=== PATIENT | male | born 1930 | race Caucasian/White ===

== ENCOUNTER 2017-05-10 09:09 | Observation (INO) | payer MEDICARE, OTHER ==
[~2017-05-10] VITALS: Ht 180.3 cm; Wt 69.9 kg
[~2017-05-10 09:09] MED LIST: ALLOPURINOL100 MG PO; AMITRIPTYLINE H25 MG PO; ANDROGEL5 GM; APRESOLINE25 MG; ASA81 MG PO; BACTRIM DS TAB1 EACH PO; CLINDAMYCIN HC300 MG PO; COUMADIN3 MG PO; CRESTOR20 MG PO; DIGOXIN125 MCG PO; FERROUS FUMARA324 MG PO; FINASTERIDE5 MG PO; FUROSEMIDE40 MG PO; JANUVIA100 MG PO; KCL20TCR PO; LEVAQUIN250 MG PO; LEVOTHYROXINE25 MCG; LEVOTHYROXINE25 MCG PO; LEVOTHYROXINE50 MCG PO; MECLIZINE HCL12.5 MG PO; MELATONIN PO; METOLAZONE5 MG PO; METOPROLOL TART25 MG PO; METOPROLOL TART50 MG PO; NIFEDIPINE ER30 M1 PO; NIFEDIPINE ER30 MG; PANTOPRAZOLE SO40 MG PO; POTASSIUM CHLO10 ME1 PO; POTASSIUM CITRATE PO; PRADAXA75 MG PO; PROSCAR5 MG; RIFAMPIN300 MG PO; SULINDAC150 MG PO; TERAZOSIN HCL5 MG PO; TYLENOL # 31 EA PO; ULTRAM50 MG PO; WARFARIN SODIUM5 MG PO; Z.0.ALLOPURINOL100 M PO; Z.0.CARTIA XT180 MG; Z.0.CATAPRES0.1 MG; Z.0.FUROSEMIDE40 MG PO; Z.0.HYTRIN5 MG PO; Z.0.LUNESTA3 MG; Z.0.OMEPRAZOLE20 M1 PO; Z.0.PROSCAR5 MG PO; Z.0.SYNTHROID25 MCG PO; Z.0.TYLENOL # 31 EA PO; Z.2.LOSARTAN-HCTZ1 E; ZEMPLAR1 MCG PO; [UNRECOGNIZED DRUG - OTHER] PO
--- OUTSIDE RECORDS SUMMARY | 2017-05-10 09:13 | XMS REPORT | Summary of Care ---
Author Author Alanna Escalera LVN Unknown Address [facility] Phone Unavailable Care Team Providers Care Spool Cleaner Hand Name Role Phone JACY Curry, IVAN Unavailable Unavailable SITA Deshpande, GORDON Unavailable Unavailable ROSE MARIE Curry, LEXIE Bill Unavailable MIKA Curry, YURY Unavailable Unavailable ROSE MARIE WILKINS [place], LEXIE ABURTO Unavailable Unavailable Unavailable Unavailable Functional Status Name Dates Details Functional status health issues are not documented Status: Name Dates Details Cognitive status health issues are not documented Status: Problems Name Dates Details Influenza vaccine needed (V04.81, Z23) Status: Active History of renal calculi (V13.01, Z87.442) Status: Resolved 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, 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: Active Eczema (692.9, L30.9) Status: Active Nephrosclerosis (403.90, I12.9) Status: Active Recurrent ventral hernia (553.21, K43.2) Status: Active Allergic rhinitis due to pollen (477.0, J30.1) Status: Active Osteoporosis (733.00, M81.0) Status: Active Low back pain (724.2, M54.5) Status: Active Sciatica (724.3, M54.30) Status: Active Kyphosis (737.10, M40.209) Status: Active Prostatic enlargement (600.00, N40.0) Status: Active Muscle weakness (generalized) (728.87, M62.81) Status: Active Allergic bronchitis, mild intermittent, uncomplicated Status: Active 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, M15.9) Status: Active Vitamin B12 deficiency (266.2, E53.8) Status: Active Mixed hyperlipidemia (272.2, E78.2) Status: Active Chronic idiopathic gout involving toe without tophus, unspecified laterality ( 274.02, M1A.0790) Status: Active Controlled type 2 diabetes mellitus with diabetic nephropathy, without long- term current use of insulin (250.40, E11.21) Status: Active Hypokalemia (276.8, E87.6) Status: Active Cardiomyopathy (425.4, I42.9) Status: Active GERD without esophagitis (530.81, K21.9) Status: Active Impaired mobility and ADLs (799.89, Z74.09) Status: Active Pre-ulcerative corn or callous (700, L84) Status: Active Other insomnia (780.52, G47.09) Status: Active Unstable gait (781.2, R26.81) Status: Active Weakness of both lower extremities (729.89, R29.898) Status: Active Cervicalgia (723.1, M54.2) Status: Active Enlarged prostate without lower urinary tract symptoms (luts) (600.00, N40.0) Status: Active Limb pain (729.5, M79.609) Status: Active Atrial fib/flutter, transient Status: Active Essential (primary) hypertension (401.9, I10) Status: Active Anemia due to acute blood loss (285.1, D62) Status: Active Diabetes mellitus without complication (250.00, E11.9) Status: Active 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 Active Meclizine HCl - 25 MG Oral Tablet take 12.5mg PRN * Refills: 0 Active Allopurinol 300 MG Oral Tablet TAKE 1 TABLET DAILY IN THE MORNING * Refills: 0 * Start : 14-Nov-2012 Active Pantoprazole Sodium 40 MG Oral Tablet Delayed Release TAKE 1 TABLET DAILY. * Refills: 0 Active Paricalcitol 1 MCG Oral Capsule TAKE 1 CAPSULE SATURDAY, SATURDAY, SATURDAY AND SATURDAY * Refills: 0 Active Coumadin 5 MG Oral Tablet 5mg every other day and 2.5 the rest of the days * Refills: 0 GORDON BUCKNER N.P. * Start : 23-Aug-2014 Active Ferrocite 324 MG Oral Tablet TAKE 1 TABLET BY MOUTH EVERY DAY DIRECTED * Refills: 0 GORDON BUCKNER N.P. * Start : 23-Aug-2014 Active Amitriptyline HCl - 25 MG Oral Tablet TAKE 1 TABLET BY MOUTH AT BEDTIME * Quantity: 90 Refills: 0 GORDON BUCKNER N.P. * Start : 29-Apr-2017 Active Tylenol 500 MG CAPS TAKE 1 CAPSULE Once PRN * Refills: 0 Active Potassium Chloride 10 MEQ CPCR TAKE 2 CAPSULES DAILY. * Refills: 0 Active Januvia 50 MG Oral Tablet TAKE 1 TABLET ONCE DAILY. * Refills: 0 Active Finasteride 5 MG Oral Tablet QPM * Quantity: 30 Refills: 1 LEXIE TROTTER M.D. Active Fenofibric Acid 135 MG Oral Capsule Delayed Release * Refills: 0 Active Calcitriol 0.25 MCG Oral Capsule take one BID * Refills: 0 Active Diclofenac Sodium 1 % Transdermal Gel APPLY ONE (1) TO TWO (2) GRAMS TO AFFECTED AREA NEEDED FOR PAIN. * Quantity: 3 Refills: 2 IVAN LOUIE M.D. * Start : 15-Jan-2017 Active 100 GM Tube Furosemide 40 MG Oral Tablet TAKE 1 TABLET BY MOUTH EVERY DAY * Quantity: 90 Refills: 0 MIKA Curry YURY * Start : 24-Jan-2017 Active MetOLazone 2.5 MG Oral Tablet TAKE 1 TABLET DAILY as needed * Quantity: 5 Refills: 0 YURY BRENNAN M.D. * Start : 24-Jan-2017 Active Metoprolol Tartrate 25 MG Oral Tablet TAKE 1 TABLET BY MOUTH TWICE DAILY * Quantity: 60 Refills: 3 MIKA Curry, YURY * Start : 24-Jan-2017 Active Ondansetron HCl - 4 MG Oral Tablet take 1 tab premeal 1-2 times a day as needed for nausea * Quantity: 10 Refills: 0 MIKA Curry, YURY * Start : 24-Jan-2017 Active Warfarin Sodium 4 MG Oral Tablet Take 1 tablet BID * Refills: 0 Active Linzess 145 MCG Oral Capsule * Refills: 0 Active Allergies and Adverse Reactions Name Dates Details Darvocet A500 TABS (Allergy) Status: Active Morphine Derivatives (Allergy) Status: Active Penicillins (Allergy) Status: Denied Vicodin TABS (Allergy) Status: Active Vioxx TABS (Allergy) Status: Active Past Medical History Name Dates Details History of Abnormal stools (787.7, R19.5) Status: Resolved History of Abrasion of thorax, initial encounter (911.0, S20.91XA) Status: Resolved History of Accidental fall on same level from slipping, tripping, or stumbling (E885.9, W01.0XXA) Status: Resolved History of acute bronchitis (V12.69, Z87.09) Status: Resolved History of Acute drug-induced gout of right foot (274.9, M10.271) Status: Resolved History of Acute kidney insufficiency (593.9, N28.9) Status: Resolved History of Acute pain of left shoulder (719.41, M25.512) Status: Resolved History of Acute upper respiratory infection (465.9, J06.9) Status: Resolved History of Acute urinary tract infection (599.0, N39.0) Status: Resolved History of arthritis (V13.4, Z87.39) Status: Resolved History of Calf cramp (729.82, R25.2) Status: Resolved History of Cellulitis (682.9, L03.90) Status: Resolved History of Chills (without fever) (780.64, R68.83) Status: Resolved History of Chills with fever (780.60, R50.9) Status: Resolved History of Contusion (924.9, T14.8XXA) Status: Resolved History of cough Status: Resolved History of Cough (786.2, R05) Status: Resolved History of Dyspnea on exertion (786.09, R06.09) Status: Resolved History of edema (V13.89, Z87.898) Status: Resolved History of Eustachian tube disorder (381.9, H69.90) Status: Resolved History of fall (V15.88, Z91.81) Status: Resolved History of Fever of unknown origin (780.60, R50.9) Status: Resolved History of headache (V13.89, Z87.898) Status: Resolved History of Hematoma (924.9, T14.8XXA) Status: Resolved History of Hypotensive episode (458.9, I95.9) Status: Resolved History of Iatrogenic hypotension (458.29, I95.89) Status: Resolved History of Idiopathic chronic gout without tophus (274.02, M1A.00X0) Status: Resolved History of Impingement syndrome of left shoulder (726.2, M75.42) Status: Resolved History of influenza (V12.09, Z87.09) Status: Resolved History of Laceration of left forearm, initial encounter (881.00, S51.812A) Status: Resolved History of Losing weight (783.21, R63.4) Status: Resolved History of lower gastrointestinal bleeding (V12.79, Z87.19) Status: Resolved History of Mucopurulent conjunctivitis, right (372.03, H10.021) Status: Resolved History of Nasal congestion (478.19, R09.81) Status: Resolved History of Pain in unspecified hip (719.45, M25.559) Status: Resolved History of pleural effusion (V12.69, Z87.09) Status: Resolved History of renal calculi (V13.01, Z87.442) Status: Resolved History of Skin Cancer (V10.83) Status: Resolved History of Strain of left trapezius muscle, initial encounter (840.8, S46.812A ) Status: Resolved History of vertigo (V12.49, Z87.898) Status: Resolved History of viral infection (V12.09, Z86.19) Status: Resolved History of Wrist disorder (719.93, M25.9) Status: Resolved Procedures Procedure Dates Details History of Pacemaker Placement Completed History of Hernia Repair Completed History of Back Surgery Completed History of Knee Surgery Completed History of Tonsillectomy With Adenoidectomy Completed Immunization Name Dates Details Influenza on: 08-Nov-2009 Pneumovax 23 25 MCG/0.5ML Injection Injectable on: Mar-2013 Td Lot #: [id number] on: 01-Aug-2013 Fluzone Quadrivalent 0.5 ML Intramuscular Suspension Lot #: [id number] on: 28-Oct-2013 Zostavax 84358 UNT/0.65ML Subcutaneous Solution Reconstituted on: 18-Aug-2014 Prevnar 13 Intramuscular Suspension Lot #: [id number] on: 27-Oct-2014 Fluzone Quadrivalent 0.5 ML Intramuscular Suspension Lot #: [id number] on: 16-Nov-2014 Fluzone Quadrivalent 0.5 ML Intramuscular Suspension Lot #: [id number] on: 30-Nov-2015 Fluzone Quadrivalent 0.5 ML Intramuscular Suspension Lot #: [id number] on: 19-Nov-2016 Influenza Comments: Approx [id number] Family History Name Dates Details Family history of Denial Of Any Significant Medical History Comments: Family History Status: Active Name Dates Details Family history of Laryngeal Cancer (V16.2) Status: Active Social History Name Dates Details - Status: Name Dates Details Former smoker Vital Signs Date Test Result Details [id number] Physical Findings 0 Status: Comments: PHQ-2 Adult Depression Screening Physical Findings 0 Status: Comments: PHQ-9 Adult Depression Screening [id number]:40 BP Systolic 109 mm[Hg] Status: Comments: Location: LUE; Position: Sitting BP Diastolic 64 mm[Hg] Status: Comments: Location: LUE; Position: Sitting Height 70 in Status: Weight 171 lb Status: Body Mass Index Calculated 24.54 kg/m2 Status: Body Surface Area Calculated 1.95 m2 Status: Temperature 98.7 f Status: Comments: Method: Temporal Heart Rate 77 /min Status: Comments: Quality: Normal Respiration Rate 18 /min Status: Comments: Quality: Normal Results Date Description Value Details Results not documented Plan of Care Name Dates Details Planned Observations Planned Goals not documented Instructions Name Dates Details Instructions not documented Encounters Appointment; LEXIE TROTTER M.D. Encounter Diagnosis: Problem not documented On: 30-May-2015 10:00 Appointment; LEXIE TROTTER M.D. Encounter Diagnosis: Problem not documented On: 08-Jun-2015 8:30 Appointment; HARITHA HERNANDEZ M.D. Encounter Diagnosis: Problem not documented On: 13-Jun-2015 10:45 Appointment; LUDA CHANDLER D.O. Encounter Diagnosis: Problem not documented On: 15-Jul-2015 13:15 Appointment; HARITHA HERNANDEZ M.D. Encounter Diagnosis: Problem not documented On: 18-Aug-2015 11:45 Appointment; GORDON BUCKNER NP Encounter Diagnosis: Problem not documented On: 07-Sep-2015 9:30 Appointment; GORDON BUCKNER NP Encounter Diagnosis: Problem not documented On: 20-Sep-2015 14:30 Appointment; LEXIE TROTTER M.D. Encounter Diagnosis: Problem not documented On: 31-Oct-2015 9:30 Appointment; LEXIE TROTTER M.D. Encounter Diagnosis: Problem not documented On: 23-Nov-2015 11:15 Appointment; SHANDA CALIX M.D. Encounter Diagnosis: Problem not documented On: 29-Nov-2015 13:00 Appointment; VIJAY MANCERA P.A. Encounter Diagnosis: Problem not documented On: 30-Nov-2015 9:15 Appointment; SHANDA CALIX M.D. Encounter Diagnosis: Problem not documented On: 23-Jan-2016 11:00 Appointment; LEXIE TROTTER M.D. Encounter Diagnosis: Problem not documented On: 30-Jan-2016 9:45 Appointment; LEXIE TROTTER M.D. Encounter Diagnosis: Problem not documented On: 17-Feb-2016 12:15 Appointment; SHANDA CALIX M.D. Encounter Diagnosis: Problem not documented On: 24-Feb-2016 14:45 Appointment; LEXIE TROTTER M.D. Encounter Diagnosis: Problem not documented On: 07-Mar-2016 13:30 Appointment; LUDA CHANDLER D.O. Encounter Diagnosis: Problem not documented On: 14-Mar-2016 12:30 [facility]ointment; [facility] Encounter Diagnosis: Problem not documented On: 15-Mar-2016 13:00 Appointment; LEXIE TROTTER M.D. Encounter Diagnosis: Problem not documented On: 23-Mar-2016 9:45 Appointment; LEXIE TROTTER M.D. Encounter Diagnosis: Problem not documented On: 26-Mar-2016 10:15 Appointment; LEXIE TROTTER M.D. Encounter Diagnosis: Problem not documented On: 15-Jun-2016 12:15 Appointment; LEXIE TROTTER M.D. Encounter Diagnosis: Problem not documented On: 27-Jun-2016 9:00 Appointment; LEXIE TROTTER M.D. Encounter Diagnosis: Problem not documented On: 23-Jul-2016 12:00 Appointment; MORIS MARTINEZ M.D. Encounter Diagnosis: Problem not documented On: 23-Jul-2016 13:00 Appointment; LEXIE TROTTER M.D. Encounter Diagnosis: Problem not documented On: 06-Aug-2016 8:15 Appointment; GORDON BUCKNER NP Encounter Diagnosis: Problem not documented On: 12-Sep-2016 8:15 Appointment; GORDON BUCKNER NP Encounter Diagnosis: Problem not documented On: 27-Sep-2016 16:00 Appointment; LEXIE TROTTER M.D. Encounter Diagnosis: Problem not documented On: 26-Oct-2016 12:00 Appointment; LEXIE TROTTER M.D. Encounter Diagnosis: Problem not documented On: 19-Nov-2016 12:45 Appointment; IVAN LOUIE M.D. Encounter Diagnosis: Problem not documented On: 15-Jan-2017 13:00 Appointment; YURY BRENNAN M.D. Encounter Diagnosis: Problem not documented On: 24-Jan-2017 11:30 Appointment; GORDON BUCKNER NP Encounter Diagnosis: Problem not documented On: 25-Jan-2017 14:00 Appointment; MORIS MARTINEZ M.D. Encounter Diagnosis: Problem not documented On: 28-Jan-2017 9:15 Appointment; YURY BRENNAN M.D. Encounter Diagnosis: Problem not documented On: 04-Feb-2017 13:00 Appointment; IVAN LOUIE M.D. Encounter Diagnosis: Problem not documented On: 26-Feb-2017 10:15 Appointment; LEXIE TROTTER M.D. Encounter Diagnosis: Problem not documented On: 17-Apr-2017 10:15
--- OUTSIDE RECORDS SUMMARY | 2017-05-10 09:13 | XMS REPORT | Clinical Summary ---
Author Author Agee [facility] Organization [facility] Address Unknown Phone Unavailable Care Team Providers Care Drawer Fitter Name Role Phone Asked, Pcp PCP Unavailable Allergies Not on File Current Medications Not on file Active Problems Not on file Social History Tobacco Use Types Packs/Day Years Used Date Never Assessed Sex Assigned at Date Recorded Not on file Last Filed Vital Signs Not on file Plan of Treatment Health Maintenance Due Date Last Done Comments ZOSTER VACCINE 1991 PNEUMOCOCCAL 06/21/1996 POLYSACCHARIDE VACCINE AGE 65 AND OVER PNEUMOCOCCAL-13 06/21/1996 INFLUENZA VACCINE 09/18/2016 Results Not on fileafter 05/09/2016 Insurance Payer Benefit Subscriber ID Type Phone Address Plan / Group MEDICARE MEDICARE xxxxxxxxxx Medicare [place], [place] PART A AND B COMMERCIAL MISC MISC xxxxxxxxx Commercial COMMERCIAL CIGNA CIGNA OPEN xxxxxxxxxxx HMO ACCESS/NET WORK
--- OUTSIDE RECORDS SUMMARY | 2017-05-10 09:13 | XMS REPORT ---
Author Author [facility] Address Unknown Phone Unavailable Care Team Providers Care Vocational Rehabilitation Supervisor Name Role Phone BARRINGTON GODOY Unavailable Unavailable Problems This patient has no known problems. Allergies, Adverse Reactions, Alerts This patient has no known allergies or adverse reactions. Medications This patient has no known medications. Results Test Description Test Time Test Comments Text Results Atomic Results Result Comments ECHO COMPLETE (ECHOCARDIOGRAM) [address] [address] Patient Name : ALBERT RODRIGUEZ MR #: [id number] : 1930 Age/Sex: 86/ M Adm Physician : BARRINGTON GODOY MD Admit Date : 01/25/17 Location : MED/SURG3 Room/Bed : [facility] REPORT: Cardiology Report DATE OF STUDY: January 26, 2017 ECHOCARDIOGRAM M-MODE: Severely dilated left atrium. Normal left ventricular contractility and wall thickness. Normal mitral, aortic, and tricuspid valves. No pericardial effusion. Pacemaker. SECTOR SCAN: Severely dilated left atrium measuring 8.7 x 4.6 cm. Normal left ventricular wall thickness. Ejection fraction is 50%; however, the apical septum is hypokinetic. Mitral, aortic, and tricuspid valves are normal. There is pacemaker. No pericardial effusion. CARDIAC DOPPLER STUDY WITH COLOR: Trace mitral regurgitation. CONCLUSIONS 1. Left ventricular apical septum is hypokinetic, suggestive of ischemic heart disease. 2. Left ventricular ejection fraction is approximately 50%. 3. Trace mitral regurgitation with severely dilated left atrium measuring 8.7 x 4.6 cm. 4. Pacemaker present. DT: 01/28 04:23 Job#: [id number] CF cc: BARRINGTON GODOY MD Signature Date Dictated By: LISHA CORONA MD Transcribed By: SMEDS on 01/28/17 <Electronically signed by LISHA CORONA MD><<Signature on File>>04/16/17 0948 COPY TO: US RENAL RETROPERITONEAL COMP [place] [address] Patient Name: ALBERT RODRIGUEZ MR #: [id number] : 1930 Age/Sex: 86/M Req #: [id number] [facility] Physician: BARRINGTON GODOY MD Ordered by: TRAN MORALES MD Report #: [id number] Location: [facility] Room/Bed: [facility] __ Procedure: [id number] US/US RENAL RETROPERITONEAL COMP Exam Date: Exam Time: REPORT STATUS: Signed EXAM: Renal Ultrasound INDICATION: COMPARISON: CT dated 2016 TECHNIQUE: Transverse and longitudinal images of the kidneys and bladder were obtained. FINDINGS: Right Kidney: Size: 10.2 cm Echogenicity: Mildly increased Parenchymal thickness: Normal Collecting system: No hydronephrosis Stones: None Cyst/Mass: None Left Kidney: Size: 9.5 cm Echogenicity: Mildly increased Parenchymal thickness: Normal Collecting system: No hydronephrosis Stones: None Cyst/Mass: 3.5 x 2.8 x 3.4 cm superior pole cyst. 1.1 cm inferior pole cyst. Bladder: Unremarkable. Bilateral ureteral jets were seen. Prostate is enlarged with volume of 48 cc. IMPRESSION: Mildly increased renal parenchymal echogenicity, suggesting medical renal disease. Left renal cysts. Enlarged prostate gland. Signed by: Dr. Satnam Abbott MD on 01/25/2017 2: 59 PM Dictated By: SATNAM ABBOTT MD [id number] Transcribed By: OMAYRA on 01/25/171458 COPY TO: TRAN MORALES MD
[2017-05-10] MEDS ORDERED: SODIUM CHLORIDE 0.9% 1000ML 1,000 ML IV STA (09:48)
[2017-05-10] MEDS ORDERED: ONDANSETRON HCL INJ 2 MG/ML VIAL IV STA (09:48)
[2017-05-10] MEDS ORDERED: PANTOPRAZOLE 40 MG 10ML VIAL IV STA (09:48)
[2017-05-10] MEDS ORDERED: FENTANYL CITRATE/PF 100MCG/2 ML INJ IV ONE (10:00)
[2017-05-10 10:05] LABS: BASOPHILS % 0.3 % (0.0-1.0); EOSINOPHILS # (AUTO) 0.1 (0.0-0.4); EOSINOPHILS % 0.9 % (0.0-6.0); HEMOGLOBIN 12.3 g/dL (14.0-18.0); LYMPHOCYTES # (AUTO) 1.5 (1.0-3.2); LYMPHOCYTES % 17.5 % (18.0-39.1); MEAN CORPUSCULAR HEMOGLOBIN 33.2 pg (28-32); MEAN CORPUSCULAR HGB CONC 33.2 g/dL (31-35); MONOCYTES # (AUTO) 0.6 (0.2-0.8); MONOCYTES % 6.7 % (4.4-11.3); NEUTROPHILS # (AUTO) 6.5 (2.1-6.9); NEUTROPHILS % 74.1 % (38.7-80.0); PLATELET COUNT 136 x10e3/uL (140-360); RED CELL DISTRIBUTION WIDTH 15.3 % (11.7-14.4)
[2017-05-10 10:09] LABS: INR 2.38; PROTHROMBIN TIME 24.4 seconds (11.9-14.5)
[2017-05-10 10:11] LABS: PARTIAL THROMBOPLASTIN TIME 37.1 seconds (23.8-35.5)
[2017-05-10 10:20] LABS: ALBUMIN 3.4 g/dL (3.5-5.0); ALBUMIN/GLOBULIN RATIO 1.1 (0.8-2.0); ANION GAP 13.2 mmol/L (8-16); CALCIUM 9.3 mg/dL (8.4-10.2); CREATININE, SERUM 1.71 mg/dL (0.72-1.25); MAGNESIUM 1.9 MG/DL (1.3-2.1); POTASSIUM 4.2 mmol/L (3.5-5.1)
[2017-05-10 10:39] LABS: CREATINE KINASE MB 2.7 ng/mL (0-5.0); THYROID STIMULATING HORMONE 4.131 uIU/mL (0.350-4.940)
[2017-05-10] MEDS ORDERED: ONDANSETRON HCL INJ 2 MG/ML VIAL IV PRN (10:45)
[2017-05-10] MEDS ORDERED: DEXTROSE 50% SYRINGE 50 ML IV PRN (10:45)
[2017-05-10] MEDS ORDERED: DIATRIZOATE MEGL/DIATRIZOA SOD 30 ML BTL PO ONE (11:09)
--- NOTE | 2017-05-10 11:24 | Diagnostic Imaging Report ---
PROCEDURE: CHEST SINGLE (PORTABLE) COMPARISON: 08/22/2016. INDICATIONS: ABDOMINAL PAIN FINDINGS: Lungs are reasonably well inflated. Persistent left hemidiaphragmatic elevation. Calcified granuloma right lung base. No focal airspace consolidation, pleural effusion, or pneumothorax. Stable cardiomediastinal contour with tortuosity and atherosclerotic calcification of the thoracic aorta. Unchanged prominence of the pulmonary interstitium. Left subclavian approach implantable dual-lead cardiac device body and leads are unchanged. No acute osseous abnormality. CONCLUSION: No acute cardiopulmonary abnormality. Persistent left hemidiaphragmatic elevation and prominence of the pulmonary interstitium, likely age-related fibrotic changes. Dictated by: Benja Lake M.D. on 05/10/2017 at 11:24 Electronically approved by: Benja Lake M.D. on 05/10/2017 at 11:24
--- NOTE | 2017-05-10 11:26 | Diagnostic Imaging Report ---
PROCEDURE:US GALLBLADDER COMPARISON:Renal ultrasound 01/25/2017, abdominal CT 08/18/2016. INDICATIONS:ABDOMINAL PAIN FINDINGS: LIVER: Size:16 cm in the right midclavicular line, normal Appearance:Normal echogenicity, smooth contour Mass:No focal masses GALLBLADDER: Absent BILE DUCTS: Intrahepatic Ducts:No dilation Extrahepatic Ducts:Common bile duct measures 0.7 cm, no dilatation. PANCREAS: Not visualized secondary to overlying bowel gas. RIGHT KIDNEY: Size:9 cm in length Echogenicity:Increased Collecting System:No hydronephrosis Stone:None Cyst/Mass:None VESSELS: Aorta:Not visualized secondary to overlying bowel gas. Inferior Vena Cava:Not visualized secondary to overlying bowel gas. Main Portal Vein:1.5 cm, mildly dilated in size with hepatopetal flow. FREE FLUID: No ascites or pleural effusions. CONCLUSION: 1. Cholecystectomy. 2. Increased right renal echogenicity suggestive of medical renal disease. Dictated by: Donis Kemp M.D. on 05/10/2017 at 11:27 Electronically approved by: Donis Kemp M.D. on 05/10/2017 at 11:27
--- OUTSIDE RECORDS SUMMARY | 2017-05-10 11:50 | XMS REPORT | Clinical Summary ---
Author Author [facility] Organization [facility] Address Unknown Phone Unavailable Care Team Providers Care Director Of Quality Control Name Role Phone Asked, Pcp PCP Unavailable [...]
[2017-05-10] MEDS ORDERED: FUROSEMIDE40 MG PO (12:20)
[2017-05-10] MEDS ORDERED: POTASSIUM CHLO10 ME1 PO (12:20)
[2017-05-10] MEDS ORDERED: METOLAZONE5 MG PO (12:20)
[2017-05-10] MEDS ORDERED: CALCITRIOL0.25 MCG PO (12:20)
[2017-05-10] MEDS ORDERED: JANUVIA100 MG PO (12:20)
[2017-05-10] MEDS ORDERED: [UNRECOGNIZED DRUG - OTHER] (12:20)
[2017-05-10] MEDS: SODIUM CHLORIDE 0.9% 1000ML 1,000 ML IV SCH ×2 (12:22→17:15)
[2017-05-10] MEDS: FENTANYL CITRATE/PF 100MCG/2 ML INJ IV SCH ×4 (12:23→21:40)
[2017-05-10] MEDS: INSULIN REGULAR, HUMAN 100 UNIT/1 ML 3ML VIAL SQ SCH ×3 (12:23→20:20)
[2017-05-10] MEDS: CEFTRIAXONE SOD 1 GM VIAL IV SCH (12:32)
[2017-05-10] MEDS: METRONIDAZOLE 500MG/NS 100ML 100 ML IV SCH ×3 (12:32→23:35)
[2017-05-10 13:00] VITALS: BP 166/86
--- NOTE | 2017-05-10 13:03 | Diagnostic Imaging Report ---
PROCEDURE: CT ABDOMEN AND PELVIS WITHOUT CONTRAST TECHNIQUE: The abdomen and pelvis were scanned utilizing a multidetector helical scanner from the diaphragm to the lesser trochanter after the oral administration of Gastroview. No IV contrast was administered because of per physician request. Coronal and sagittal multiplanar reformations were obtained. DLP 462.05 mGy-cm. COMPARISON: Abdominal CT 08/18/2016 INDICATIONS: LOWER ABDOMINAL PAIN FINDINGS: ABSENCE OF INTRAVENOUS CONTRAST DECREASES SENSITIVITY FOR DETECTION OF FOCAL LESIONS AND VASCULAR PATHOLOGY. LOWER THORAX: Cardiac leads in the right atrium and right ventricle. Coronary artery and aortic calcifications. HEPATOBILIARY: No focal hepatic lesions. Calcified granuloma in the left hepatic lobe. No biliary ductal dilatation. Cholecystectomy. SPLEEN: No splenomegaly. Calcified granuloma. PANCREAS: No focal masses or ductal dilatation. ADRENALS: No adrenal nodules. KIDNEYS/URETERS: No hydronephrosis or solid mass lesions. Right superior pole 3 mm calculus. Left superior pole 3 cm. PELVIC ORGANS/BLADDER: Enlarged 5.4 x 3.8 x 5.5 cm (58.7 cc). PERITONEUM / RETROPERITONEUM: No free air or fluid. Stable marked soft tissue in the upper and lower abdomen related to mesh hernia repair. prior mesh hernia repair. LYMPH NODES: No lymphadenopathy. VESSELS: Diffuse severe atherosclerotic calcifications. Limited evaluation without IV contrast. 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 GI TRACT: No distention or wall thickening. Left colonic diverticula without evidence of diverticulitis. Appendix is normal. BONES AND SOFT TISSUES: Ankylosis of L2-L4. Scattered multilevel degenerative changes of the spine. Advanced degenerative changes of the right hip. Gluteal injection granulomas. IMPRESSION: 1. No acute abnormalities. 2. Right nephrolithiasis. 3. Colonic diverticulosis. 4. 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 5. Prostatomegaly. Dictated by: Donis Kemp M.D. on 05/10/2017 at 13:03 Electronically approved by: Donis Kemp M.D. on 05/10/2017 at 13:03
[2017-05-10 13:48] VITALS: BP 160/86
[2017-05-10 14:13] LABS: BILIRUBIN,URINE NEGATIVE (NEGATIVE); KETONES,URINE NEGATIVE (NEGATIVE); LEUKOCYTE ESTERASE ,URINE NEGATIVE (NEGATIVE); NITRITE,URINE NEGATIVE (NEGATIVE); PROTEIN,URINE DIPSTICK 1+ (NEGATIVE); URINE UROBILINOGEN 0.2 mg/dL (0.2 - 1)
[2017-05-10 14:14] LABS: CLARITY,URINE CLEAR (CLEAR); COLOR,URINE YELLOW (YELLOW)
[2017-05-10 16:00] VITALS: BP 155/89
[2017-05-10 19:10] VITALS: BP 155/89
[2017-05-10 19:46] VITALS: BP 133/77
[2017-05-11 00:25] VITALS: BP 139/78
[2017-05-11] MEDS: SODIUM CHLORIDE 0.9% 1000ML 1,000 ML IV SCH ×2 (02:32→11:10)
[2017-05-11] MEDS: FENTANYL CITRATE/PF 100MCG/2 ML INJ IV SCH ×3 (02:45→09:52)
[2017-05-11] MEDS: METRONIDAZOLE 500MG/NS 100ML 100 ML IV SCH ×2 (05:15→11:10)
[2017-05-11 05:16] VITALS: BP 133/83
[2017-05-11 07:20] LABS: BASOPHILS % 0.3 % (0.0-1.0); EOSINOPHILS # (AUTO) 0.1 (0.0-0.4); EOSINOPHILS % 0.6 % (0.0-6.0); HEMATOCRIT 38.1 % (38.2-49.6); HEMOGLOBIN 12.5 g/dL (14.0-18.0); LYMPHOCYTES # (AUTO) 1.4 (1.0-3.2); LYMPHOCYTES % 14.3 % (18.0-39.1); MEAN CORPUSCULAR HEMOGLOBIN 33.2 pg (28-32); MEAN CORPUSCULAR HGB CONC 32.8 g/dL (31-35); MEAN CORPUSCULAR VOLUME 101.1 fL (81-99); MONOCYTES # (AUTO) 0.7 (0.2-0.8); MONOCYTES % 7.2 % (4.4-11.3); NEUTROPHILS # (AUTO) 7.7 (2.1-6.9); NEUTROPHILS % 77.2 % (38.7-80.0); PLATELET COUNT 131 x10e3/uL (140-360); RED BLOOD COUNT 3.77 x10e6/uL (4.3-5.7); RED CELL DISTRIBUTION WIDTH 15.6 % (11.7-14.4)
[2017-05-11] MEDS: INSULIN REGULAR, HUMAN 100 UNIT/1 ML 3ML VIAL SQ SCH (07:30)
[2017-05-11 07:47] LABS: ALBUMIN/GLOBULIN RATIO 1.2 (0.8-2.0); ANION GAP 9.9 mmol/L (8-16); CALCIUM 9.3 mg/dL (8.4-10.2); CREATININE, SERUM 1.41 mg/dL (0.72-1.25); POTASSIUM 3.9 mmol/L (3.5-5.1)
[2017-05-11 08:23] VITALS: BP 125/77
[2017-05-11] MEDS ORDERED: PANTOPRAZOLE 40 MG 10ML VIAL IV SCH (09:00)
[2017-05-11] MEDS: CEFTRIAXONE SOD 1 GM VIAL IV SCH (09:29)
[2017-05-11] MEDS ORDERED: DEXTROSE 50% SYRINGE 50 ML IV PRN (11:15)
[2017-05-11] MEDS ORDERED: INSULIN LISPRO 100 UNIT/1 ML 3ML VIAL SQ SCH (11:30)
[2017-05-11] MEDS ORDERED: ALLOPURINOL 100 MG TAB PO SCH (11:30)
[2017-05-11] MEDS ORDERED: LEVOTHYROXINE SODIUM 75 MCG TAB PO SCH (11:30)
[2017-05-11] MEDS ORDERED: FINASTERIDE 5 MG TAB PO SCH (11:30)
[2017-05-11 11:33] LABS: INR 2.21
[2017-05-11 11:59] VITALS: BP 138/80
[2017-05-11] MEDS ORDERED: METOPROLOL TARTRATE 25 MG TAB PO SCH (12:00)
[2017-05-11] MEDS ORDERED: AMITRIPTYLINE HCL 25 MG TAB PO SCH (21:00)
[2017-05-12] MEDS ORDERED: PANTOPRAZOLE SOD 40 MG TABEC PO SCH (07:30)
== END 2017-05-11 13:23 | disposition home or self-care (01) ==
LOC: ER 09:09 → EDBEDREQ 11:46 → INTOOBSV 11:47 → MED/SURG 11:47
PROVIDERS: ADMIT Internal Medicine; ATTEND Internal Medicine
DX: K43.9 Ventral hernia without obstruction or gangrene (principal); R10.11 Right upper quadrant pain; N28.9 Disorder of kidney and ureter, unspecified; Z88.5 Allergy status to narcotic agent; Z88.0 Allergy status to penicillin
CPT/HCPCS: 36415 ×2; 71045; 74176; 76705; 80053 ×2; 81001; 82550; 82553; 82948 ×2; 83690 ×2; 83735; 83880; 84443; 84484; 85025 ×2; 85610 ×2; 85730; 86850; 86900; 87086; 93005; 96360; 99284; G0378 ×2; J0696 ×2; J2405; J7030 ×2

== ENCOUNTER 2018-02-18 14:26 | Inpatient (IN) | payer MEDICARE, OTHER ==
[~2018-02-18] VITALS: Ht 180.3 cm; Wt 78.0 kg
[~2018-02-18 14:26] MED LIST changes: +CALCITRIOL0.25 MCG PO; +[UNRECOGNIZED DRUG - OTHER]
--- OUTSIDE RECORDS SUMMARY | 2018-02-18 14:31 | XMS REPORT | Clinical Summary ---
Author Author [facility] Organization [facility] Address Unknown Phone Unavailable Care Team Providers Care Sewing Teacher Name Role Phone Asked, No Pcp PCP Unavailable Allergies Not on File Medications Not on file Active Problems Not on file Social History Date Tobacco Use Types Packs/Day Years Used Never Assessed Sex Assigned at Date Recorded Not on file Industry Job Start Date Occupation Not on file Not on file Not on file Travel End Travel History Travel Start No recent travel history available. Last Filed Vital Signs Not on file Plan of Treatment Health Maintenance Due Date Last Done Comments SHINGLES VACCINES (1 of 06/21/1981 2) PNEUMOCOCCAL 06/21/1996 POLYSACCHARIDE VACCINE AGE 65 AND OVER PNEUMOCOCCAL-13 06/21/1996 INFLUENZA VACCINE 09/18/2017 Results Not on fileafter 02/17/2017 Insurance Payer Benefit Subscriber ID Type Phone Address Plan / Group MEDICARE MEDICARE xxxxxxxxxx Medicare [place], [place] PART A AND B COMMERCIAL MISC MISC xxxxxxxxx Commercial COMMERCIAL CIGNA CIGNA OPEN xxxxxxxxxxx HMO ACCESS/NET WORK Advance Directives Patient has advance care planning documents on file. For more information, moira sigala contact: Anuel Garcia [address] [place] [address]
--- OUTSIDE RECORDS SUMMARY | 2018-02-18 14:31 | XMS REPORT | Summary of Care ---
Author Author Barb Ramirez M.A. 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, unspecified laterality (274.02, M1A.0790) Status: Active Controlled type 2 diabetes mellitus with diabetic nephropathy, without long-term current use of insulin (250.40, E11.21) Status: [...] Essential (primary) hypertension (401.9, I10) Status: Active Diabetes mellitus without complication (250.00, [...] Active Hydrocele, left (603.9, N43.3) Status: Active Anemia due to acute blood loss (285.1, D62) Status: Active Medications Name Dates Details Levothyroxine [...] rest of the days * Refills: 0 SITA Crawford.GORDON Lee * Start : 23-Aug-2014 Active Ferrocite 324 MG Oral Tablet TAKE 1 TABLET BY MOUTH EVERY DAY DIRECTED * Refills: 0 SITA N.GORDON Lee * Start : 23-Aug-2014 Active Amitriptyline HCl - 25 MG Oral Tablet TAKE 1 TABLET BY MOUTH AT BEDTIME- NEEDS OFFICE VISIT * Quantity: 7 Refills: 0 SITA N.P., GORDON * Start : 19-Nov-2017 Active Tylenol 500 MG CAPS TAKE 1 [...] EVERY DAY * Quantity: 90 Refills: 0 YURY BRENNAN M.D. * Start : 24-Jan-2017 Active MetOLazone 2.5 MG Oral Tablet TAKE 1 TABLET DAILY as needed * Quantity: 5 Refills: 0 YURY BRENNAN M.D. * Start : 24-Jan-2017 Active Metoprolol Tartrate 25 MG Oral Tablet TAKE 1 TABLET BY MOUTH TWICE DAILY * Quantity: 60 Refills: 3 SATLEE Curry, YURY * Start : 24-Jan-2017 Active Ondansetron HCl - 4 MG Oral Tablet take 1 tab premeal 1-2 times a day as needed for nausea * Quantity: 10 Refills: 0 YURY BRENNAN M.D. * Start : 24-Jan-2017 Active Warfarin Sodium [...] of left trapezius muscle, initial encounter (840.8, S46.812A) Status: Resolved History of vertigo (V12.49, Z87.898) [...] Quadrivalent 0.5 ML Intramuscular Suspension Lot #: [id number] on: 28-Oct-2013 Zostavax [id number] UNT/0.65ML Subcutaneous Solution Reconstituted on: 18-Aug-2014 Prevnar 13 Intramuscular Suspension Lot #: [id number] on: 27-Oct-2014 Fluzone Quadrivalent 0.5 ML Intramuscular Suspension Lot #: [id number] on: 16-Nov-2014 Fluzone Quadrivalent 0.5 ML Intramuscular Suspension Lot #: [id number] on: 30-Nov-2015 Fluzone Quadrivalent 0.5 ML Intramuscular Suspension Lot #: [id number] on: 19-Nov-2016 Influenza Comments: Approx [id number] Family History Name Dates Details Family history of Denial Of Any Significant Medical History Comments: Family History Status: Active Name Dates Details Family history of Laryngeal Cancer (V16.2) Status: Active Social History Name Dates Details - Status: Name Dates Details Former smoker Vital Signs Date Test Result Details No Known Vitals to report Results Date Description Value Details Results not documented Plan of Care Name Dates Details Planned Observations Planned Goals not documented Interventions Provided Medication Changes* Amitriptyline HCl - 25 MG Oral Tablet - Renew Instructions Name Dates Details Instructions not documented [...] Problem not documented On: 14-Mar-2016 12:30 Appointment; SHAUNA LEE Encounter Diagnosis: Problem not documented On: 15-Mar-2016 [...]
[2018-02-18] MEDS ORDERED: ONDANSETRON HCL INJ 2 MG/ML VIAL IV STA (15:51)
[2018-02-18] MEDS ORDERED: SODIUM CHLORIDE 0.9% 1000ML 1,000 ML IV SCH (16:15)
--- NOTE | 2018-02-18 18:26 | Diagnostic Imaging Report ---
EXAM: CT Abdomen and Pelvis WITHOUT contrast INDICATION: Vomiting. COMPARISON: CT Abdomen/Pelvis 04/20/2017. TECHNIQUE: Abdomen and pelvis were scanned utilizing a multidetector helical scanner from the lung base to the pubic symphysis without administration of IV contrast. Absence of intravenous contrast decreases sensitivity for detection of focal lesions and vascular pathology. Coronal and sagittal reformations were obtained. Routine protocol was performed. RADIATION DOSE: Total DLP: 694 mGy*cm COMPLICATIONS: None FINDINGS: LINES and TUBES: None. LOWER THORAX: Partially seen pacemaker leads. Diffuse mild bronchial wall thickening. Patchy dependent atelectatic changes. HEPATOBILIARY: No focal hepatic lesions. No biliary ductal dilation. Status post cholecystectomy. GALLBLADDER: No radio-opaque stones or sludge. No wal SPLEEN: No splenomegaly. PANCREAS: No focal masses or ductal dilatation. ADRENALS: No adrenal nodules KIDNEYS/URETERS: Unchanged 3 cm left upper pole simple renal cyst. No hydronephrosis. No solid mass lesions. No stones. GI TRACT: Again noted is soft tissue the upper lower abdomen related to prior mesh hernia repair. Mildly dilated small bowel loops measuring up to 3 cm with possible transition point in the proximal ileum on series 2, image 49. Distally, fluid-filled nondilated mid and distal ileal loops extend into the ventral hernia without CT findings of wall thickening or inflammatory changes. Air and fecal contents are seen in nondistended colonic loops. There is scattered colonic diverticulosis without CT evidence of diverticulitis. Appendix is unremarkable. PELVIC ORGANS/BLADDER: The bladder is unremarkable. Prostatomegaly. LYMPH NODES: No lymphadenopathy. VESSELS: Extensive atherosclerotic calcifications of the abdominal aorta and branch vessels. Distal thoracic aortic aneurysm dilatation measuring up to 3.5 cm. Tortuous distal thoracic aorta. 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 PERITONEUM / RETROPERITONEUM: No free air or fluid. BONES/SOFT TISSUES: No acute osseous abnormality. Degenerative changes of the lower lumbar spine. IMPRESSION: Findings of recurrent ventral hernia status post prior mesh repair surgeries, as noted on prior studies. Mildly dilated proximal small bowel loops with possible transition point in the proximal ileum and relative decompression of the distal ileum and colon. Findings may represent partial small bowel obstruction (possibly secondary to adhesions) in this patient with clinical history of vomiting. Follow-up radiographs suggested. Mid and distal ileal loops enter the ventral hernia without evidence of incarceration. Distal thoracic aortic aneurysm. Signed by: Dr. Stacia Meade MD on 02/18/2018 7:39 PM
[2018-02-18] MEDS: SODIUM CHLORIDE 0.9% 250ML IRRIG IR SCH ×2 (19:00→23:00)
--- NOTE | 2018-02-18 20:40 | NUR ---
ATTEMPTED TO INSERT NG TUBE X4 TWICE IN RIGHT NOSTRIL AND TWICE IN LEFT NOSTRIL, UNABLE TO ADVANCE THROUGH TURBIN OF NASAL PASSAGE, PATIENT BECAME QUIET UNCOMFORTABLE AND AKSED TO SEE IF WE CAN TRY LATER.
[2018-02-18 21:20] VITALS: BP 158/82
--- NOTE | 2018-02-18 21:27 | NUR ---
RECEIVED PT BY EMS FROM [facility]. PT IS AAOX3, RR EVEN AND NON-LABORED, ON RA. NO S/SX OF DISTRESS NOTED. PT ASSISTED TO AMBULATE TO HOSPITAL BED. ORIENTED PT TO HOSPITAL ROOM, CALL LIGHT, PHONE, BED CONTROLS AND LIGHTS. LEFT PT SITTING ON SIDE OF BED WITH AIRDROP SYSTEMS TECHNICIAN TAKING VITAL SIGNS. BED IN LOW LOCKED POSITION, SIDE RAILS UPX2, CALL LIGHT AND PHONE WITHIN REACH. FAMILY AT BEDSIDE.
[2018-02-18 21:50] VITALS: BP 133/68
[2018-02-18] MEDS ORDERED: FERROUS FUMARA324 MG PO (22:15)
[2018-02-18] MEDS ORDERED: FLOMAX0.4 MG PO (22:15)
[2018-02-18] MEDS ORDERED: SYNTHROID125 MCG PO (22:15)
[2018-02-18] MEDS ORDERED: VITAMIN B-121000 MC1 PO (22:15)
[2018-02-18] MEDS ORDERED: DETROL LA4 MG PO (22:15)
[2018-02-18] MEDS ORDERED: VITAMIN D1000 UNI1 PO (22:15)
--- NOTE | 2018-02-18 22:46 | NUR ---
SPOKE WITH MD Vignesh DAVIDSON CONCERNING PT REQUESTING A SPRAY TO NUMB NOSE BECAUSE THERE WAS [address] NGT. ORDERS RECEIVED TO HOLD NGT PLACEMENT AND HAVE ABDOMINAL XRAY 2 VIEW IN AM. AFTER XRAY MD Vignesh DAVIDSON WILL REEVALUATE NGT PLACEMENT.
[2018-02-18] MEDS: SODIUM CHLORIDE 0.9% 1000ML 1,000 ML IV SCH (23:48)
[2018-02-18 23:51] LABS: BASOPHILS % 0.2 % (0.0-1.0); EOSINOPHILS # (AUTO) 0.1 (0.0-0.4); EOSINOPHILS % 1.1 % (0.0-6.0); HEMATOCRIT 33.7 % (38.2-49.6); HEMOGLOBIN 11.1 g/dL (14.0-18.0); LYMPHOCYTES # (AUTO) 0.9 (1.0-3.2); LYMPHOCYTES % 14.1 % (18.0-39.1); MEAN CORPUSCULAR HEMOGLOBIN 34.5 pg (28-32); MEAN CORPUSCULAR HGB CONC 32.9 g/dL (31-35); MEAN CORPUSCULAR VOLUME 104.7 fL (81-99); MONOCYTES # (AUTO) 0.6 (0.2-0.8); MONOCYTES % 8.8 % (4.4-11.3); NEUTROPHILS # (AUTO) 4.7 (2.1-6.9); NEUTROPHILS % 75.5 % (38.7-80.0); PLATELET COUNT 124 x10e3/uL (140-360); RED BLOOD COUNT 3.22 x10e6/uL (4.3-5.7); RED CELL DISTRIBUTION WIDTH 14.5 % (11.7-14.4)
[2018-02-19] VITALS (8 sets, daily range): BP systolic 133–169; BP diastolic 68–92
[2018-02-19 00:30] LABS: ALBUMIN 3.3 g/dL (3.5-5.0); ALBUMIN/GLOBULIN RATIO 1.2 (0.8-2.0); ANION GAP 14.5 mmol/L (8-16); CALCIUM 10.2 mg/dL (8.4-10.2); CREATININE, SERUM 1.59 mg/dL (0.72-1.25); POTASSIUM 3.5 mmol/L (3.5-5.1)
[2018-02-19] MEDS: SODIUM CHLORIDE 0.9% 250ML IRRIG IR SCH ×6 (01:11→23:00)
[2018-02-19 02:13] LABS: INR 1.45; PROTHROMBIN TIME 18.8 seconds (11.9-14.5)
[2018-02-19 02:14] LABS: PARTIAL THROMBOPLASTIN TIME 40.9 seconds (23.8-35.5)
[2018-02-19] MEDS: SODIUM CHLORIDE 0.9% 1000ML 1,000 ML IV SCH ×2 (05:00→16:35)
[2018-02-19 09:44] LABS: BASOPHILS % 0.4 % (0.0-1.0); EOSINOPHILS # (AUTO) 0.2 (0.0-0.4); EOSINOPHILS % 2.7 % (0.0-6.0); HEMATOCRIT 35.7 % (38.2-49.6); HEMOGLOBIN 11.5 g/dL (14.0-18.0); LYMPHOCYTES # (AUTO) 1.3 (1.0-3.2); LYMPHOCYTES % 22.4 % (18.0-39.1); MEAN CORPUSCULAR HEMOGLOBIN 34.8 pg (28-32); MEAN CORPUSCULAR HGB CONC 32.2 g/dL (31-35); MEAN CORPUSCULAR VOLUME 108.2 fL (81-99); MONOCYTES # (AUTO) 0.5 (0.2-0.8); MONOCYTES % 9.5 % (4.4-11.3); NEUTROPHILS # (AUTO) 3.6 (2.1-6.9); NEUTROPHILS % 64.8 % (38.7-80.0); PLATELET COUNT 133 x10e3/uL (140-360); RED CELL DISTRIBUTION WIDTH 14.6 % (11.7-14.4)
[2018-02-19 10:04] LABS: ALBUMIN 3.2 g/dL (3.5-5.0); ALBUMIN/GLOBULIN RATIO 1.1 (0.8-2.0); ANION GAP 13.7 mmol/L (8-16); CALCIUM 10.3 mg/dL (8.4-10.2); CREATININE, SERUM 1.55 mg/dL (0.72-1.25); POTASSIUM 3.7 mmol/L (3.5-5.1)
--- NOTE | 2018-02-19 10:16 | Diagnostic Imaging Report ---
Exam: KUB- 3 views. Clinical History: Small bowel obstruction. Comparison: CT abdomen/pelvis 02/18/2018. Findings: There are mildly dilated small bowel loops in the midabdomen measuring up to 3.6 cm at the site of ventral hernia noted on prior CT. Contrast and air seen throughout a nondistended colon. Radiopaque markers from prior mesh repair is noted overlying the upper and lower mid abdomen. Status post cholecystectomy. Partially seen pacemaker lead. No acute bony abnormality. Impression: Findings of continuing partial small bowel obstruction. Signed by: Dr. Stacia Meade MD on 02/19/2018 10:13 AM
--- NOTE | 2018-02-19 10:43 | History and Physical ---
CHIEF COMPLAINT: Nausea and vomiting. HISTORY OF PRESENT ILLNESS: This is an 87-year-old white man who presented to [facility] with a 1-day history of nausea and vomiting. The patient states that at 2 o'clock in the morning on the day of admission he had 2 separate episodes of intense nausea and vomiting. The patient states that a few hours later it occurred again. In the emergency room, the patient was found to have a white blood cell count of 6200 with 75% segmented neutrophils. The patient's hemoglobin was 11.1 g/dL. The patient's BUN and creatinine were 22 and 1.59 respectively. Potassium was 3.5. The patient's AST and ALT were 11 and 7 respectively. The patient underwent a CT of the abdomen and pelvis without contrast that revealed findings of recurrent ventral hernia status post prior mesh repair surgery. Also revealed mildly dilated proximal small loops with possible transition point in the proximal ileum with relative decompression of the distal ileum and colon. The patient was admitted for further evaluation and treatment. Blood work done yesterday did reveal prothrombin time and INR level of 18.1 and 1.45 respectively. REVIEW OF SYSTEMS GENERAL: Weight has been stable. No fever or chills. HEENT: No headache. No vision changes. CARDIOVASCULAR: No chest pain. No shortness of breath or cough. GI: Nausea and vomiting as per HPI. No melena. No hematochezia. No hematemesis or coffee-ground emesis. The patient has constipation. : The patient has BPH issues. At this time, he is not complaining of any urinary tract infection type symptoms. NEUROMUSCULAR: No limb weakness or numbness. PAST MEDICAL HISTORY 1. Chronic diastolic congestive heart failure. 2. Type-2 diabetes mellitus. 3. Stage-3 chronic kidney disease. 4. Hypertensive heart disease. 5. Chronic atrial fibrillation. 6. Benign prostatic hypertrophy. 7. Urethral stricture. 8. Hypothyroidism. 9. History of ventricular tachycardia. 10. History of Mobitz-I AV block. 11. Hypertensive heart disease. 12. Chronic obstructive pulmonary disease. ALLERGIES 1. PENICILLIN. 2. DARVOCET. 3. VIOXX. 4. MORPHINE. SURGICAL HISTORY 1. Pacemaker placement. 2. Lumbar spine surgery. 3. Abdominal aortic aneurysm repair. 4. Ventral wall hernia repair with mesh placement. 5. Laparoscopic cholecystectomy. 6. Thyroid cyst removal. FAMILY HISTORY: Father at 90 years old. Mother from cancer at age 56. SOCIAL HISTORY: This man is and lives with his . He quit tobacco smoking many years ago. He drinks alcohol approximately 1 drink daily. The patient has 2 adult sons who are very much involved in his healthcare needs. MEDICATIONS 1. Allopurinol 300 mg daily. 2. Amitriptyline 25 mg nightly. 3. Calcitriol 0.5 mcg b.i.d. 4. Vitamin D3 1,000 units daily. 5. Vitamin B12 1,000 mcg daily. 6. Ferrous fumarate 325 mg daily. 7. Finasteride 5 mg nightly. 8. Furosemide 40 mg daily. 9. Levothyroxine 125 mcg daily. 10. Metoprolol tartrate 25 mg b.i.d. 11. Pantoprazole 40 mg daily. 12. Potassium chloride 10 mEq b.i.d. 13. Januvia 25 mg daily. 14. Tamsulosin 0.4 mg b.i.d. 15. Detrol LA 4 mg daily. 16. Warfarin 6 mg every night. PHYSICAL EXAMINATION GENERAL: He is awake, alert and fully oriented. He is very pleasant and cooperative with exam. He does not appear to be in any distress. VITAL SIGNS: Blood pressure 153/83, pulse 73, respiratory rate 22, temperature 96.6. Oxygen saturation is 95% on room air. Height is 5 feet 11 inches, and weight is 168 pounds. BMI is 23. INTEGUMENT: Skin is warm and dry. No pallor, jaundice or diaphoresis. HEENT: Anicteric sclerae with moist mucous membranes. NECK: Supple. No evidence of jugular venous distention. CARDIOVASCULAR: Distant heart sounds. Regular rate and rhythm. LUNGS: No rales. No rhonchi or wheezing. ABDOMEN: Soft. He has an obvious ventral wall hernia. It is reducible and nontender. Normal bowel sounds. EXTREMITIES: No edema or deformity. NEUROLOGIC: Intact. SPINE/TORSO: The patient has a pronounced kyphotic dorsal spine. DIAGNOSES 1. Small-bowel obstruction, likely. 2. Chronic diastolic congestive heart failure. 3. History of prior ventral hernia repair with mesh placement. 4. Paroxysmal atrial fibrillation. 5. Hypertensive heart disease. 6. Stage-3 chronic kidney disease. 7. Chronic obstructive pulmonary disease. PLAN 1. Will consult general surgery. 2. Agree with daily abdominal 2-view radiographs to assess for any improvement or worsening of possible small-bowel obstruction. 3. Will resume home medications with small sips of water. 4. Will follow white blood cell count and electrolytes. 5. Will follow prothrombin time and INR level since the patient is on warfarin therapy. I spent an hour in the care of this patient. Job#: [id number]
--- NOTE | 2018-02-19 11:21 | NUR ---
Rounds by attending and renewed home medications and may have meds with small sips of water, labs ordered and KUB ordered with results still persistent SBO.
--- NOTE | 2018-02-19 15:20 | NUR ---
Patient's IV to LAC infiltrated, new IV line placed to LFA 20G by nurse information services manager, fluids running at this time, will monitor.
[2018-02-19] MEDS: TAMSULOSIN HCL 0.4 MG CAP PO SCH (16:35)
[2018-02-19] MEDS: WARFARIN SOD 3 MG TAB PO SCH (16:36)
[2018-02-19] MEDS: POTASSIUM CHLORIDE 10MEQ EA PO SCH (16:36)
[2018-02-19] MEDS: METOPROLOL TARTRATE 25 MG TAB PO SCH (16:36)
[2018-02-19] MEDS: CALCITRIOL 0.25 MCG CAP PO SCH (16:36)
[2018-02-19] MEDS: AMITRIPTYLINE HCL 25 MG TAB PO SCH (21:46)
[2018-02-19] MEDS: BISACODYL 10 MG SUPP PR SCH (21:46)
[2018-02-19] MEDS: FINASTERIDE 5 MG TAB PO SCH (21:46)
[2018-02-20] MEDS: SODIUM CHLORIDE 0.9% 1000ML 1,000 ML IV SCH ×2 (01:00→05:44)
[2018-02-20] MEDS: SODIUM CHLORIDE 0.9% 250ML IRRIG IR SCH ×4 (03:00→15:00)
[2018-02-20 04:00] VITALS: BP 145/74
[2018-02-20] MEDS: LEVOTHYROXINE SODIUM 125 MCG TAB PO SCH (05:41)
[2018-02-20 05:50] LABS: BASOPHILS % 0.3 % (0.0-1.0); EOSINOPHILS # (AUTO) 0.1 (0.0-0.4); EOSINOPHILS % 2.2 % (0.0-6.0); HEMATOCRIT 34.6 % (38.2-49.6); HEMOGLOBIN 11.2 g/dL (14.0-18.0); LYMPHOCYTES # (AUTO) 1.5 (1.0-3.2); LYMPHOCYTES % 23.6 % (18.0-39.1); MEAN CORPUSCULAR HEMOGLOBIN 33.9 pg (28-32); MEAN CORPUSCULAR HGB CONC 32.4 g/dL (31-35); MEAN CORPUSCULAR VOLUME 104.8 fL (81-99); MONOCYTES # (AUTO) 0.6 (0.2-0.8); MONOCYTES % 9.7 % (4.4-11.3); PLATELET COUNT 125 x10e3/uL (140-360); RED CELL DISTRIBUTION WIDTH 14.6 % (11.7-14.4)
[2018-02-20 06:06] LABS: INR 1.36; PROTHROMBIN TIME 17.9 seconds (11.9-14.5)
[2018-02-20 06:11] LABS: ALBUMIN 3.1 g/dL (3.5-5.0); ALBUMIN/GLOBULIN RATIO 1.1 (0.8-2.0); ANION GAP 11.6 mmol/L (8-16); CREATININE, SERUM 1.41 mg/dL (0.72-1.25); POTASSIUM 3.6 mmol/L (3.5-5.1)
--- NOTE | 2018-02-20 07:48 | Diagnostic Imaging Report ---
Exam: KUB- 3 views. Clinical History: Partial small bowel obstruction. Comparison: CT abdomen/pelvis 02/18/2018, KUB 02/19/2018. Findings: There are mildly dilated small bowel loops in the midabdomen, at the site of ventral hernia noted on prior CT. Small bowel distension is slightly decreased from KUB on 02/19/2018. Radiopaque markers from prior mesh repair is noted overlying the upper and lower mid abdomen. Status post cholecystectomy. Partially seen pacemaker leads. No acute bony abnormality. Degenerative changes of the visualized spine. Impression: Findings of partial small bowel obstruction with slight decrease in small bowel distension. Signed by: Dr. Stacia Meade MD on 02/20/2018 7:45 AM
[2018-02-20 08:00] VITALS: BP 157/76
[2018-02-20] MEDS: BISACODYL 10 MG SUPP PR SCH (08:06)
[2018-02-20] MEDS: PANTOPRAZOLE SOD 40 MG TABEC PO SCH (08:06)
[2018-02-20] MEDS: TOLTERODINE TARTRATE 4 MG CAPCR PO SCH (08:06)
[2018-02-20] MEDS: TAMSULOSIN HCL 0.4 MG CAP PO SCH ×2 (08:06→17:31)
[2018-02-20] MEDS: CYANOCOBALAMIN 1,000 MCG TAB PO SCH (08:07)
[2018-02-20] MEDS: POTASSIUM CHLORIDE 10MEQ EA PO SCH ×2 (08:07→17:31)
[2018-02-20] MEDS: METOPROLOL TARTRATE 25 MG TAB PO SCH ×2 (08:07→17:31)
[2018-02-20] MEDS: CALCITRIOL 0.25 MCG CAP PO SCH ×2 (08:07→17:31)
[2018-02-20] MEDS: CHOLECALCIFEROL 1,000 UNIT TAB PO SCH (08:07)
[2018-02-20] MEDS: ALLOPURINOL 100 MG TAB PO SCH (08:07)
[2018-02-20] MEDS: FUROSEMIDE 40 MG TAB PO SCH (08:07)
[2018-02-20 08:11] VITALS: BP 157/76
[2018-02-20] MEDS: SITAGLIPTIN 100 MG TAB PO SCH (08:12)
--- NOTE | 2018-02-20 09:51 | NUR ---
Patient had a large loose BM.
[2018-02-20 12:00] VITALS: BP 137/76
--- NOTE | 2018-02-20 16:10 | NUR ---
CASE MANAGEMENT INITIAL ASSESSMENT Thumb Sewer to bedside to discuss plan of care with patient/family. CM/SW role and care transitions discussed. Anticipated discharge plan discussed along with duration of care. CM/SW discussed patients right to make decisions in care. CM/SW work hours given. Patient lives: WITH Admit/Transfer: ER POA/Emergency contact: SALVATORE RODRIGUEZ [phone] Current/Previous Home Health: HAS HOME HEALTH BUT DOES NOT KNOW NAME; GAVE PT MY NAME AND NUMBER TO CALL ME WITH NAME AND NUMBER WHEN HE FINDS OUT PCP/Follow-up Care: DR BARRETT Current/Previous DME: [facility], [facility], [facility] Other Services: PROVIDERS TO CLEAN HIS HOME 3 HRS A DAY 2 X A WEEK Employment Status: RETIRED Areas of Concerns: NONE Referral Needs: WILL FAX HOME HEALTH ORDERS WHEN PT CALLS ME WITH NAME Education Needs: NONE IMM/VANN given and signed (if applicable): OBS TO INPT 02/20 IMM SIGNED Goal for discharge:HOME WITH HIS CM/SW left business card at the bedside with contact information. Name and number was also written on the patients whiteboard. Patient verbalized understanding of discussion. CM will follow-up with ongoing discharge and transition of care needs.
[2018-02-20 17:25] VITALS: BP 144/85
[2018-02-20] MEDS: WARFARIN SOD 3 MG TAB PO SCH (17:31)
--- NOTE | 2018-02-20 18:41 | NUR ---
PAGED MD JUAREZ FOR ORDERS ON DIET AWAITING FOR CALL BACK
--- NOTE | 2018-02-20 18:51 | NUR ---
SPOKE WITH MD JUAREZ. STATES PT CAN BE ADVANCED TO FULL LIQUID. PBLY DC TOMORROW. ORDERS RECEIVED
[2018-02-20 20:17] VITALS: BP 135/84
[2018-02-20] MEDS: AMITRIPTYLINE HCL 25 MG TAB PO SCH (21:40)
[2018-02-20] MEDS: FINASTERIDE 5 MG TAB PO SCH (21:40)
[2018-02-21] VITALS: BP 161/94
[2018-02-21 04:00] VITALS: BP 149/72
[2018-02-21 06:00] LABS: BASOPHILS % 0.3 % (0.0-1.0); EOSINOPHILS # (AUTO) 0.2 (0.0-0.4); EOSINOPHILS % 2.5 % (0.0-6.0); HEMATOCRIT 33.9 % (38.2-49.6); HEMOGLOBIN 11.3 g/dL (14.0-18.0); LYMPHOCYTES # (AUTO) 1.5 (1.0-3.2); LYMPHOCYTES % 24.8 % (18.0-39.1); MEAN CORPUSCULAR HEMOGLOBIN 34.2 pg (28-32); MEAN CORPUSCULAR HGB CONC 33.3 g/dL (31-35); MEAN CORPUSCULAR VOLUME 102.7 fL (81-99); MONOCYTES # (AUTO) 0.6 (0.2-0.8); MONOCYTES % 10.4 % (4.4-11.3); NEUTROPHILS # (AUTO) 3.7 (2.1-6.9); NEUTROPHILS % 61.5 % (38.7-80.0); PLATELET COUNT 132 x10e3/uL (140-360)
[2018-02-21 06:29] LABS: ALBUMIN 3.1 g/dL (3.5-5.0); ALBUMIN/GLOBULIN RATIO 1.1 (0.8-2.0); ALKALINE PHOSPHATASE 67 IU/L (40-150); ANION GAP 13.5 mmol/L (8-16); BLOOD UREA NITROGEN 16 mg/dL (7-26); BUN/CREATININE RATIO 12 (6-25); CALCIUM 10.2 mg/dL (8.4-10.2); CARBON DIOXIDE 23 mmol/L (22-29); CHLORIDE 107 mmol/L (98-107); CREATININE, SERUM 1.36 mg/dL (0.72-1.25); EST GLOMERULAR FILTRATION RATE 50 ML/MIN (60-); GLUCOSE 98 mg/dL (74-118); POTASSIUM 3.5 mmol/L (3.5-5.1); SODIUM 140 mmol/L (136-145)
[2018-02-21 06:30] LABS: ALANINE AMINOTRANSFERASE < 6 IU/L (0-55)
[2018-02-21] MEDS: LEVOTHYROXINE SODIUM 125 MCG TAB PO SCH (06:33)
--- NOTE | 2018-02-21 07:00 | NUR ---
Received patient mid fowlers position, side rails upx2, call light within reach. AAOx3 to time, person, place. Respirations even and unlabored. Instructed patient to use call light for assistance. Voiced understanding.
--- NOTE | 2018-02-21 07:01 | Diagnostic Imaging Report ---
EXAM: ABDOMEN 2 VIEW, DATE: 02/21/2018 6:00 AM INDICATION: Small bowel obstruction COMPARISON: KUB 02/20/2018, CT 02/18/2018 FINDINGS: LINES/TUBES: None BOWEL PATTERN: Decreased distention of small bowel. There is air and enteric contrast within the colon. SOFT TISSUES: No abnormal calcifications. No mass effect. Cholecystectomy clips in the right upper quadrant. LUNG BASES: Mild bibasilar atelectasis. Partially visualized cardiac leads overlying the right atrium and right ventricle. BONES: No acute findings. IMPRESSION: Decreased small bowel distention. Signed by: DR. Donis Kemp MD on 02/21/2018 6:58 AM
[2018-02-21 08:19] VITALS: BP 163/95
[2018-02-21] MEDS: TAMSULOSIN HCL 0.4 MG CAP PO SCH (08:41)
[2018-02-21] MEDS: CALCITRIOL 0.25 MCG CAP PO SCH (08:41)
[2018-02-21] MEDS: TOLTERODINE TARTRATE 4 MG CAPCR PO SCH (08:41)
[2018-02-21] MEDS: SITAGLIPTIN 100 MG TAB PO SCH (08:41)
[2018-02-21] MEDS: PANTOPRAZOLE SOD 40 MG TABEC PO SCH (08:41)
[2018-02-21] MEDS: CYANOCOBALAMIN 1,000 MCG TAB PO SCH (08:42)
[2018-02-21] MEDS: FUROSEMIDE 40 MG TAB PO SCH (08:42)
[2018-02-21] MEDS: ALLOPURINOL 100 MG TAB PO SCH (08:42)
[2018-02-21] MEDS: POTASSIUM CHLORIDE 10MEQ EA PO SCH (08:42)
[2018-02-21] MEDS: METOPROLOL TARTRATE 25 MG TAB PO SCH (08:42)
[2018-02-21] MEDS: CHOLECALCIFEROL 1,000 UNIT TAB PO SCH (08:42)
[2018-02-21 09:00] VITALS: BP 163/95
[2018-02-21] MEDS ORDERED: POTASSIUM CHLORIDE 10MEQ EA PO ONE (10:15)
--- NOTE | 2018-02-21 10:30 | NUR ---
Paged Dr.J Jackson to notify of discharge
--- NOTE | 2018-02-21 10:41 | Discharge Summary ---
ADMIT DIAGNOSES 1. Small-bowel obstruction. 2. Chronic diastolic congestive heart failure. 3. History of prior ventral hernia repair with mesh placement. 4. Paroxysmal atrial fibrillation. 5. Hypertensive heart disease. 6. Stage-3 chronic kidney disease. 7. Chronic obstructive pulmonary disease. DISCHARGE DIAGNOSES 1. Small-bowel obstruction, resolved. 2. Gvhiy-su-xzisdyi renal failure, resolved. 3. Stage-3 chronic kidney disease. 4. Paroxysmal atrial fibrillation. 5. Hypertensive heart disease. 6. Chronic diastolic congestive heart failure. 7. History of prior ventral hernia repair with mesh placement. 8. Chronic obstructive pulmonary disease. HOSPITAL COURSE: This is an 87-year-old white man who was admitted to [facility] with diagnosis of small-bowel obstruction and mcyrk-rd-uvmgiez renal failure. The patient's bfeba-ue-edydhtk renal failure resolved with intravenous fluids. The patient's small-bowel obstruction resolved with supportive care. The patient was seen by general surgeon, namely Dr. Alex Jackson, during this hospitalization. The patient's hospitalization was unremarkable. On admission, the patient's BUN and creatinine were 22 and 1.59 respectively. On the day of discharge, the patient's BUN and creatinine were 16 and 1.36 respectively. Two-view abdominal x-ray on the day of discharge revealed air and enteric contrast within the colon with decreased distention of the small bowel. No evidence of small-bowel obstruction was appreciated. The patient's condition on discharge was stable. On the day of discharge, the patient was tolerating a soft regular diet. DISCHARGE MEDICATIONS 1. Potassium chloride 10 mEq b.i.d. 2. Metoprolol tartrate 25 mg b.i.d. 3. Furosemide 40 mg daily. 4. Vitamin B12 1,000 mcg daily. 5. Vitamin D3 1,000 units daily. 6. Allopurinol 300 mg daily. 7. Detrol LA 4 mg daily. 8. Tamsulosin 0.4 mg b.i.d. 9. Sitagliptin 25 mg daily. 10. Pantoprazole 40 mg daily. 11. Calcitriol 0.5 mcg twice a day. 12. Levothyroxine 125 mcg daily. 13. Finasteride 5 mg nightly. 14. Amitriptyline 25 mg nightly. 15. Warfarin 6 mg daily. FOLLOWUP INSTRUCTIONS: The patient will follow up with his attending, namely myself, Dr. Leonardo Barrett, within the next week. LEONARDO BARRETT MD Job#: [id number] MH cc:ALEX JACKSON MD
[2018-02-21 12:26] VITALS: BP 146/86
--- NOTE | 2018-02-21 13:31 | NUR ---
left forearm IV discontinued. No signs of infiltration noted. 2x2 gauze and paper tape place. Taken via wheelchair by PCT to personal car. AAOX4 to time,person, place, situation. Respirations even and unlabored. Discharge instructions and all personal belongings taken with patient. No rx available.
== END 2018-02-21 13:33 | disposition home or self-care (01) | DRG 389 ==
LOC: FSED 14:26 → ERHOLD 18:46 → MED/SURG 21:26 → OBSVTOIN 02-19 13:05
PROVIDERS: ADMIT Internal Medicine; ATTEND Internal Medicine
DX: K56.51 Intestinal adhesions [bands], with partial obstruction (principal); I13.0 Hypertensive heart and chronic kidney disease with heart failure and stage 1 through stage 4 chronic kidney disease, or unspecified chronic kidney disease; I50.32 Chronic diastolic (congestive) heart failure; N17.9 Acute kidney failure, unspecified; N18.3 Chronic kidney disease, stage 3 (moderate); I48.0 Paroxysmal atrial fibrillation; J44.9 Chronic obstructive pulmonary disease, unspecified; Z79.01 Long term (current) use of anticoagulants; K43.2 Incisional hernia without obstruction or gangrene; Z88.5 Allergy status to narcotic agent; Z88.0 Allergy status to penicillin; Z88.8 Allergy status to other drugs, medicaments and biological substances
CPT/HCPCS: 36415; 74019; 74176; 80053; 81003; 82948; 85025; 85610; 85730; 86850; 86900; 99284; G0378; J2405; J7030

== ENCOUNTER 2018-12-26 07:47 | Inpatient (IN) | payer MEDICARE, OTHER ==
[~2018-12-26] VITALS: Ht 180.3 cm; Wt 74.8 kg
[~2018-12-26 07:47] MED LIST changes: +DETROL LA4 MG PO; +FLOMAX0.4 MG PO; +SYNTHROID125 MCG PO; +VITAMIN B-121000 MC1 PO; +VITAMIN D1000 UNI1 PO
[2018-12-26] MEDS ORDERED: ACETAMINOPHEN 325 MG TAB PO ONE (08:30)
[2018-12-26 08:46] LABS: ALBUMIN 3.2 g/dL (3.5-5.0); ALBUMIN/GLOBULIN RATIO 1.1 (0.8-2.0); CALCIUM 10.4 mg/dL (8.4-10.2); CREATININE, SERUM 2.02 mg/dL (0.72-1.25)
--- NOTE | 2018-12-26 08:57 | Diagnostic Imaging Report ---
EXAMINATION: CHEST SINGLE (PORTABLE) INDICATION: Shortness of breath COMPARISON: None FINDINGS: LINES/TUBES:Left chest pacer. EKG leads overlie the chest. LUNGS:The lungs are moderately inflated. There is perihilar fullness and indistinctness of the pulmonary vasculature. Mild patchy opacities at both lung bases. PLEURA:No pleural effusion or pneumothorax. MEDIASTINUM:Mild cardiomegaly. Atherosclerotic calcifications of the thoracic aorta. BONES/SOFT TISSUES:No acute osseous injury. ABDOMEN:No free air under the diaphragm. IMPRESSION: Pulmonary interstitial edema and mild cardiomegaly. Patchy opacities at both lung bases, most likely subsegmental atelectasis. Signed by: Sunita Nunez MD on 12/26/2018 8:53 AM
[2018-12-26] MEDS ORDERED: CEFEPIME 1GM/NS 0.9% 50 ML 50 ML IV STA (09:47)
[2018-12-26 09:50] LABS: EOSINOPHILS % (MANUAL) 3 % (0-7); LYMPHOCYTES % (MANUAL) 71 % (19-48); MONOCYTES % (MANUAL) 3 % (3.4-9.0); NEUTROPHILS % (MANUAL) 22 % (40-74); PLATELET ESTIMATE MARKEDLY DECREASED; PLATELET MORPHOLOGY COMMENT NORMAL
[2018-12-26 10:04] LABS: EOSINOPHILS % 0.9 % (0.0-6.0); HEMATOCRIT 25.1 % (38.2-49.6); HEMOGLOBIN 8.2 g/dL (14.0-18.0); LYMPHOCYTES # (AUTO) 0.9 (1.0-3.2); LYMPHOCYTES % 82.7 % (18.0-39.1); MEAN CORPUSCULAR HEMOGLOBIN 32.7 pg (28-32); MEAN CORPUSCULAR HGB CONC 32.7 g/dL (31-35); MONOCYTES # (AUTO) 0.1 (0.2-0.8); MONOCYTES % 4.5 % (4.4-11.3); NEUTROPHILS # (AUTO) 0.1 (2.1-6.9); NEUTROPHILS % 11.9 % (38.7-80.0); RED BLOOD COUNT 2.51 x10e6/uL (4.3-5.7); RED CELL DISTRIBUTION WIDTH 14.9 % (11.7-14.4)
[2018-12-26 10:06] LABS: PLATELET COUNT 20 x10e3/uL (140-360)
[2018-12-26 10:21] LABS: BILIRUBIN,URINE NEGATIVE (NEGATIVE); CLARITY,URINE CLEAR (CLEAR); COLOR,URINE YELLOW (YELLOW); KETONES,URINE NEGATIVE (NEGATIVE); LEUKOCYTE ESTERASE ,URINE NEGATIVE (NEGATIVE); NITRITE,URINE NEGATIVE (NEGATIVE); PROTEIN,URINE DIPSTICK NEGATIVE (NEGATIVE); URINE UROBILINOGEN 1 mg/dL (0.2 - 1)
[2018-12-26 10:45] LABS: BACTERIA,URINE RARE /HPF; EPITHELIAL CELLS,URINE RARE /LPF; RBC,URINE 0-5 /HPF (0-5); WBC,URINE (MAN) 0-5 /HPF (0-5)
--- OUTSIDE RECORDS SUMMARY | 2018-12-26 11:50 | XMS REPORT | Summary of Care ---
Author Author Barbra Agee Organization Unknown Address Unknown Phone Unavailable Care Team Providers Care Finance Business Partner Name Role Phone JACY Curry, IVAN Unavailable Unavailable SITA Deshpande, GORDON Unavailable Unavailable ROSE MARIE Curry, LEXIE Unavailable Unavailable MIKA Curry, YURY Unavailable Unavailable AnuelBarbra Unavailable Unavailable ROSE MARIE WILKINS [place], LEXIE ABURTO Unavailable Unavailable ROSE MARIE WILKINS, LEXIE GOINS Unavailable Unavailable Unavailable Unavailable Functional Status Name [...] of the days * Refills: 0 SITA N.PGORDON Varghese * Start : 23-Aug-2014 Active Ferrocite 324 MG Oral Tablet TAKE 1 TABLET BY MOUTH EVERY DAY DIRECTED * Refills: 0 SITA N.PGORDON Varghese * Start : 23-Aug-2014 Active Amitriptyline HCl [...] BRENNAN M.D. * Start : 24-Jan-2017 Active metOLazone 2.5 MG Oral Tablet TAKE 1 TABLET DAILY as needed * Quantity: 5 Refills: 0 YURY BRENNAN M.D. * Start : 24-Jan-2017 Active Metoprolol Tartrate 25 MG Oral Tablet TAKE 1 TABLET BY MOUTH TWICE DAILY * Quantity: 60 Refills: 3 SATOLLIER M.DHalima, YURY * Start : 24-Jan-2017 Active Ondansetron [...] Quadrivalent 0.5 ML Intramuscular Suspension Lot #: [id number] on: 28-Oct-2013 Zostavax [id number] UNT/0.65ML Subcutaneous Solution Reconstituted on: 18-Aug-2014 Prevnar 13 Intramuscular Suspension Lot #: [id number] on: 27-Oct-2014 Fluzone Quadrivalent 0.5 ML Intramuscular Suspension Lot #: [id number] on: 16-Nov-2014 Fluzone Quadrivalent 0.5 ML Intramuscular Suspension Lot #: [id number] on: 30-Nov-2015 Fluzone Quadrivalent 0.5 ML Intramuscular Suspension Lot #: [id number] on: 19-Nov-2016 Influenza Comments: Approx [id number] Family History Name Dates Details Family history [...]
[2018-12-26 12:06] LABS: CREATINE KINASE 35 IU/L (30-200)
[2018-12-26] MEDS ORDERED: ENOXAPARIN SODIUM INJ 100 MG/ML SYR SC SCH (12:45)
[2018-12-26] MEDS: DEXTROSE 5%/0.45% SOD CHL 1,000 ML IV SCH (13:58)
[2018-12-26] MEDS: VANCOMYCIN 1GM/NS 250 ML 250 ML IV SCH (13:58)
[2018-12-26] MEDS ORDERED: FILGRASTIM 480 MCG INJ SQ ONE (14:00)
[2018-12-26] MEDS ORDERED: PAMIDRONATE DISODIUM 54 MG in SODIUM CHLORIDE 0.9% 500ML 300 ML IV ONE (14:00)
[2018-12-26] MEDS ORDERED: DIATRIZOATE MEGL/DIATRIZOA SOD 30 ML BTL PO ONE (14:48)
[2018-12-26 15:00] VITALS: BP 119/61
[2018-12-26 15:17] VITALS: BP 104/66
[2018-12-26 15:45] VITALS: BP 119/61
--- NOTE | 2018-12-26 16:40 | Diagnostic Imaging Report ---
EXAM: CT Abdomen and Pelvis WITHOUT intravenous contrast INDICATION: Acute renal failure COMPARISON: Chest radiograph of 12/26/2018, CT abdomen and pelvis of 03/09/2018 TECHNIQUE: Abdomen and pelvis were scanned utilizing a multidetector helical scanner from the lung base to the pubic symphysis without administration of IV contrast. Coronal and sagittal reformations were obtained. IV CONTRAST: None ORAL CONTRAST: Gastrografin COMPLICATIONS: None RADIATION DOSE: Total DLP: 405.1 mGy*cm Dose modulation, iterative reconstruction, and/or weight based adjustment of the mA/kV was utilized to reduce the radiation dose to as low as reasonably achievable. FINDINGS: LOWER THORAX: Diffuse bronchial wall thickening. Mild bibasilar dependent subsegmental atelectasis. Multichamber cardiomegaly. Pacemaker leads partially visualized. Atherosclerotic coronary artery calcifications. HEPATOBILIARY: No focal hepatic lesions. Status post cholecystectomy. SPLEEN: No splenomegaly. PANCREAS: Diffuse fatty atrophy. ADRENALS: No adrenal nodules. KIDNEYS/URETERS: 4 mm nonobstructive right upper pole renal calculus. 2 mm left upper pole and 5 mm left lower pole nonobstructive renal calculi. No hydronephrosis. Bilateral renal cysts measuring up to 2.9 cm at the upper pole of the left kidney. PELVIC ORGANS/BLADDER: Prostatomegaly to 5.3 cm. PERITONEUM / RETROPERITONEUM: No free air or fluid. LYMPH NODES: No lymphadenopathy. VESSELS: Extensive atherosclerotic calcifications of the tortuous abdominal aorta and major branches. The bilateral common iliac arteries are ectatic. GI TRACT: Diverticulosis without CT evidence of diverticulitis. No abnormal bowel thickening. No bowel obstruction. Normal appendix. BONES AND SOFT TISSUES: Status post prior ventral abdominal hernia mesh repair with unchanged appearance of recurrent hernia along the right side of the mesh containing loops of large and small bowel. Diffuse skeletal muscle atrophy. IMPRESSION: Unchanged appearance of recurrent ventral hernia along the right side of prior mesh repair which contains loops of large and small bowel. Diverticulosis without CT evidence of diverticulitis. Bilateral nonobstructive renal calculi. Diffuse bronchial wall thickening is nonspecific and can be seen with bronchitis. Diffuse atherosclerotic arterial calcifications including of the coronary arteries. Signed by: Sunita Nunez MD on 12/26/2018 4:37 PM
[2018-12-26 17:00] VITALS: BP 120/67
[2018-12-26] MEDS ORDERED: CALCITRIOL 0.25 MCG CAP PO SCH (17:00)
[2018-12-26] MEDS ORDERED: WARFARIN SOD 3 MG TAB PO SCH (17:00)
[2018-12-26] MEDS: TAMSULOSIN HCL 0.4 MG CAP PO SCH (17:11)
[2018-12-26] MEDS: METOPROLOL TARTRATE 25 MG TAB PO SCH (17:12)
[2018-12-26 19:33] VITALS: BP 121/67
--- NOTE | 2018-12-26 20:18 | History and Physical ---
The patient is an 88-year-old male, who has a past medical history positive for hepatitis, chronic renal failure, came here with fever, not feeling well. He was found to have pancytopenia, possible sepsis. The patient is going to be admitted to the hospital. REVIEW OF SYSTEMS: CARDIOVASCULAR: No chest pain or palpitation. RESPIRATORY: No shortness of breath. No cough. GASTROINTESTINAL: No nausea or vomiting. No diarrhea. GENITOURINARY: No frequency or dysuria. ALLERGIES: HE IS ALLERGIC TO A LONG LIST OF MEDICATIONS LISTED IN THE CHART, WHICH INCLUDE HYDROCODONE, MORPHINE, NITROFURANTOIN, PENICILLIN G, PAST MEDICAL HISTORY: He claimed that he has a history of diabetes mellitus type 2. History of chronic renal insufficiency, history of hypertension. PHYSICAL EXAMINATION: HEART: Showed regular rhythm. Normal S1, S2 sound. LUNGS: Clear bilaterally. ABDOMEN: Soft. He has some evidence of hernia . EXTREMITIES: Show no evidence of cyanosis or hematoma. He does have petechiae in both lower extremities. VITAL SIGNS: Blood pressure is 170/55, temperature is 100.5, heart rate 70 per minute, respiratory rate 22 per minute, pulse oximetry is 100%. LABORATORY DATA: On the CBC, white blood count 1.10, hemoglobin 8.2, hematocrit 25.1, platelet count 20,000. On the BMP; sodium 140, potassium 4.0, chloride 105, CO2 25, BUN 39, creatinine 2.02, glucose 109. Lactic acid is 1.2, calcium 10.4, total bilirubin 1.3, AST 21, ALT 30, alkaline phosphatase 180. CK 35, CK-MB 0.60, troponin 0.01. Total protein 6.2, albumin 3.2, globulin 3.0 with globulin ratio 1.1. Chest x-ray showed pulmonary interstitial edema. Mild cardiomegaly. Patchy opacity in both lung bases, more likely subsegmental atelectasis. So, blood cultures and urine culture have been sent and reports are pending. IMPRESSION: 1. Sepsis. 2. Pancytopenia. 3. Acute on chronic renal failure stage 3 to 4. 4. Uncontrolled diabetes mellitus type 2 with diabetic nephropathy. PLAN OF TREATMENT: We are going to admit the patient to intensive care unit. He is on Neupogen 480 mcg once, he had 0.18 mg IV once, cefepime 2 g IV once a day, vancomycin 1 g IV once a day empirically. I did not get the blood culture report. Tylenol 325 mg q.4 hours as needed for mild pain, allopurinol 300 mg daily, mg twice a day, cholecalciferol 1000 units daily, Cyanocobalamin which is vitamin 2500 mcg p.o. daily, Lovenox 324 mg with only daily, finasteride 5 mg daily, furosemide 40 mg daily, levothyroxine 125 mcg daily, metoprolol 25 mg twice a day, Protonix 40 mg daily, Januvia 25 mg daily, Flomax 0.4 mg twice a day, Detrol LA 4 mg daily, Tylenol 650 mg one time, Coumadin 6 mg daily. We are going to order PT and INR. Also, we are going to also order D5 half-normal saline at 75 mL an hour due to the sepsis. Dr. Chapman has been consulted from the Hematology point of view to go to the pancytopenia, Dr. Rollins for Infectious Disease point of view due to the sepsis. MD TAMMIE Ceballos/AKIRA /[id number]
[2018-12-26] MEDS: FINASTERIDE 5 MG TAB PO SCH (20:45)
[2018-12-26] MEDS: ACETAMINOPHEN 325 MG TAB PO PRN (20:46)
--- NOTE | 2018-12-26 21:29 | Consultation ---
DATE OF CONSULTATION: REASON FOR CONSULTATION: Fever, chills, sepsis. HISTORY OF PRESENT ILLNESS: This patient is very pleasant 88-year-old white male, denies specific medical problem, comes in with two days fever, chills, not feeling well. The patient comes into the emergency room. In the emergency room, he was admitted. He was evaluated and admitted. He was seen here, had a chest x-ray showed pulmonary interstitial edema. His white count was 1.1, his hemoglobin 8.2, platelet of 20. His sodium 140, potassium 4.0, creatinine 2.02. This elderly gentleman who is currently lying in bed with chills. Denies any past medical history. He was here in April. He does have a past medical history of diabetes mellitus, congestive heart failure, had multiple intraabdominal procedure surgery, he had midline abdominal hernia. Had a ventral hernia. In February, he was here with a nausea, vomiting and he had again past medical history of congestive heart failure, diabetes mellitus stage 3, chronic kidney disease, hypertension, chronic atrial fibrillation, benign prostate hypertrophy, urethral stricture, hypothyroidism, history of ventricular tachycardia, history of Mobitz 1 AV block, congestive heart failure, and COPD. ALLERGIES: PENICILLIN, DARVOCET AND MORPHINE. PAST SURGICAL HISTORY: Pacemaker placement, lumbar spine surgery, abdominal aortic aneurysm repair, laparoscopic cholecystectomy, thyroid cyst removal. FAMILY HISTORY: His father at age 90. His mother at age 56 from cancer. SOCIAL HISTORY: He is , no smoking, drug abuse, or alcohol abuse. He quit smoking several years ago. HOME MEDICATIONS: He is on: 1. Allopurinol 300 mg daily. 2. Amitriptyline. 3. Vitamin D. 4. Vitamin B12. 5. Iron sulfate. 6. Levothyroxine. 7. Januvia. 8. He is also on Coumadin. REVIEW OF SYSTEMS: CONSTITUTIONAL: He is not feeling well, fever, chills, rigors. HEENT: There is no headache, visual changes. There are no hearing changes. GI: There is no nausea, no vomiting, no diarrhea. CARDIAC: There is no arrhythmia. NEURO: No seizure activity. SKIN: There is no rash. JOINT: No erythema or edema. LABORATORY DATA: Reviewed as mentioned above. IMPRESSION: 1. Sepsis, presents on admission. 2. Pancytopenia concerned about bone marrow disease. Agree with Hematology-Oncology. May need bone marrow biopsy, would obtain CT abdomen and pelvis. The source of sepsis is unclear at present time. 3. Urinary tract infection is possibility versus other. I agree with vancomycin and cefepime. We will await blood cultures, urine cultures. 4. Chronic kidney disease. We will have to adjust his kidney function. According to that we have to adjust his antibiotic according to his kidney function. We will follow with you. MD BRYN Ho/AKIRA /[id number]
[2018-12-27] VITALS (9 sets, daily range): BP systolic 109–127; BP diastolic 59–75
[2018-12-27] MEDS: ACETAMINOPHEN 325 MG TAB PO PRN ×2 (03:33→22:21)
[2018-12-27] MEDS: DEXTROSE 5%/0.45% SOD CHL 1,000 ML IV SCH ×2 (05:07→15:40)
[2018-12-27 05:20] LABS: HEMATOCRIT 21.6 % (38.2-49.6); HEMOGLOBIN 7.2 g/dL (14.0-18.0); LYMPHOCYTES # (AUTO) 0.7 (1.0-3.2); MEAN CORPUSCULAR HEMOGLOBIN 33.5 pg (28-32); MEAN CORPUSCULAR HGB CONC 33.3 g/dL (31-35); MEAN CORPUSCULAR VOLUME 100.5 fL (81-99); MONOCYTES # (AUTO) 0.1 (0.2-0.8); MONOCYTES % 6.3 % (4.4-11.3); NEUTROPHILS # (AUTO) 0.2 (2.1-6.9); NEUTROPHILS % 18.7 % (38.7-80.0); RED BLOOD COUNT 2.15 x10e6/uL (4.3-5.7); RED CELL DISTRIBUTION WIDTH 14.8 % (11.7-14.4)
[2018-12-27 05:29] LABS: PLATELET COUNT 16 x10e3/uL (140-360)
[2018-12-27 05:51] LABS: ANION GAP 10.5 mmol/L (8-16); CALCIUM 9.9 mg/dL (8.4-10.2); CREATININE, SERUM 1.64 mg/dL (0.72-1.25); POTASSIUM 3.5 mmol/L (3.5-5.1)
--- NOTE | 2018-12-27 06:01 | NUR ---
called and left a message to dr Chapman, reported lab result this morning, awaiting for the MD to call back.
[2018-12-27] MEDS: LEVOTHYROXINE SODIUM 125 MCG TAB PO SCH (06:19)
--- NOTE | 2018-12-27 07:00 | NUR ---
BEDSIDE ROUNDS COMPLETE NO DISTRESS NOTED, UPDATED ON POC VOICED UNDERSTANDING, DENIES PAIN AT THIS TIME, BRUISING NOTED TO L 4TH TOE, L FA 18G NO SS OF INFILTRATION NOTED,NO OTHER CO VOICED CALL LIGHT IN REACH WILL CONTINUE OT MONITOR
[2018-12-27 07:37] LABS: PLATELET ESTIMATE MARKEDLY DECREASED; PLATELET MORPHOLOGY COMMENT FEW LARGE
[2018-12-27] MEDS: TAMSULOSIN HCL 0.4 MG CAP PO SCH ×2 (08:50→17:20)
[2018-12-27] MEDS: SITAGLIPTIN 100 MG TAB PO SCH (08:50)
[2018-12-27] MEDS: FUROSEMIDE 40 MG TAB PO SCH (08:50)
[2018-12-27] MEDS: CYANOCOBALAMIN 1,000 MCG TAB PO SCH (08:50)
[2018-12-27] MEDS: METOPROLOL TARTRATE 25 MG TAB PO SCH ×2 (08:50→17:20)
[2018-12-27] MEDS: PANTOPRAZOLE SOD 40 MG TABEC PO SCH (08:50)
[2018-12-27] MEDS: TOLTERODINE TARTRATE 4 MG CAPCR PO SCH (08:50)
[2018-12-27] MEDS: ALLOPURINOL 100 MG TAB PO SCH (08:50)
[2018-12-27] MEDS ORDERED: CHOLECALCIFEROL 1,000 UNIT TAB PO SCH (09:00)
--- NOTE | 2018-12-27 10:00 | NUR ---
AMBULATED TO BATHROOM WITH ASSISTANCE. PT SITTING IN CHAIR AT THIS TIME, WILL CONTINUE TO MONITOR
[2018-12-27] MEDS: CEFEPIME 2 GM/NS 0.9% 100 ML 100 ML IV SCH (10:10)
[2018-12-27] MEDS ORDERED: SODIUM CHLORIDE 0.9% 250ML 250 ML IV ONE (11:15)
[2018-12-27] MEDS ORDERED: FUROSEMIDE INJ 10 MG/ML 4 ML VIAL IV ONE (11:15)
[2018-12-27] MEDS: VANCOMYCIN 1GM/NS 250 ML 250 ML IV SCH (12:25)
[2018-12-27] MEDS ORDERED: DEXTROSE 50% SYRINGE 50 ML IV PRN (13:15)
--- NOTE | 2018-12-27 13:25 | NUR ---
SPOKE WITH DR MARAVILLA RE: BLOOD CULTURE RESULTS GRAM POSITIVE RODS, ORDERS TO STOP VANCOMYCIN.
--- NOTE | 2018-12-27 13:47 | Progress Note ---
DATE: Internal Medicine Progress Note SUBJECTIVE: The patient is feeling better today. PHYSICAL EXAMINATION: VITAL SIGNS: Blood pressure 137/75, temperature 98 degrees, heart rate 71 per minute, respiratory rate 17 per minute, oxygen saturation 100%. HEART: Showed regular rhythm. Normal S1, S2 sound. LUNGS: Clear bilaterally. ABDOMEN: Soft. EXTREMITIES: Show no evidence of cyanosis or hematoma. LABORATORY DATA: Blood culture showed gram-negative bacteria in one of the specimens. We are going to repeat 2 sets of blood cultures again to make sure it is not a contaminant. On the BMP; sodium 140, potassium 3.5, chloride 107 CO2 26, BUN 33, creatinine 1.64, glucose 113. On the CBC; white count 0.96, hemoglobin 7.2, hematocrit 21.6, platelet count 16,000. AST 21, ALT 30, total bilirubin 1.3, alkaline phosphatase 180. FINAL IMPRESSION: 1. Sepsis. 2. Pancytopenia, most likely secondary to myelodysplastic syndrome. 3. Acute on chronic renal failure stage 3 to 4. 4. Uncontrolled diabetes mellitus type 2 with diabetic nephropathy. 5. Hypothyroidism. 6. Benign prostatic hypertrophy. PLAN OF TREATMENT: Continue cefepime 1 g IV q.12 hours. Continue vancomycin 1 g IV once a day. Continue D5 normal saline at 75 mL an hour, Tylenol 325 mg q.4 hours as needed, furosemide 40 mg daily, Flomax 0.4 mg twice a day, allopurinol 300 mg daily, levothyroxine 125 mg daily. We discontinued the Coumadin because the platelets is only 16,000 because with high risk of bleeding. Continue vitamin B12 1000 mcg daily, metoprolol 25 mg twice a day, Detrol LA 4 mg daily, finasteride 5 mg daily, Protonix 40 mg daily, Januvia [address] Chapman, Hematology/Oncology will decide about the bone marrow biopsy. He should be in a reverse contact isolation right now due to the severe leukopenia. The patient is going to get blood transfusion today, platelet infusion and he is going to get Neupogen also. Repeat CBC and BMP tomorrow. Infectious Disease physician, Dr. Rollins is on the case. Dr. Chapman is for the Hematology/Oncology, Dr. Zachary Moore is going to be consulted from the renal service point of view. Dr. John is because of history of BPH. MD TAMMIE Ceballos/AKIRA /[id number]
[2018-12-27] MEDS ORDERED: SODIUM CHLORIDE 0.9% 250ML 250 ML ONE ×2 (14:34→23:37)
--- NOTE | 2018-12-27 15:55 | NUR ---
PAGED DR SERRANO FOR CONSULT OF CKD, SPOKE WITH JAMAL (ANSWERING SERVICE)
[2018-12-27] MEDS: INSULIN LISPRO 100 UNIT/1 ML 3ML VIAL SQ SCH ×2 (17:37→21:00)
[2018-12-27] MEDS: FINASTERIDE 5 MG TAB PO SCH (21:26)
[2018-12-28] VITALS (7 sets, daily range): BP systolic 117–146; BP diastolic 63–83
[2018-12-28] MEDS: DEXTROSE 5%/0.45% SOD CHL 1,000 ML IV SCH ×2 (05:00→09:55)
[2018-12-28] MEDS: LEVOTHYROXINE SODIUM 125 MCG TAB PO SCH (05:22)
[2018-12-28 05:25] LABS: EOSINOPHILS % 1.4 % (0.0-6.0); HEMATOCRIT 28.3 % (38.2-49.6); HEMOGLOBIN 9.3 g/dL (14.0-18.0); LYMPHOCYTES # (AUTO) 1.3 (1.0-3.2); LYMPHOCYTES % 84.5 % (18.0-39.1); MEAN CORPUSCULAR HGB CONC 32.9 g/dL (31-35); MEAN CORPUSCULAR VOLUME 97.3 fL (81-99); MONOCYTES # (AUTO) 0.1 (0.2-0.8); MONOCYTES % 3.4 % (4.4-11.3); NEUTROPHILS # (AUTO) 0.2 (2.1-6.9); NEUTROPHILS % 10.7 % (38.7-80.0); RED BLOOD COUNT 2.91 x10e6/uL (4.3-5.7); RED CELL DISTRIBUTION WIDTH 15.1 % (11.7-14.4)
[2018-12-28 05:28] LABS: PLATELET COUNT 30 x10e3/uL (140-360)
[2018-12-28 05:37] LABS: INR 1.12; PROTHROMBIN TIME 14.9 seconds (11.9-14.5)
[2018-12-28 05:47] LABS: CALCIUM 9.5 mg/dL (8.4-10.2); CREATININE, SERUM 1.49 mg/dL (0.72-1.25)
[2018-12-28] MEDS: INSULIN LISPRO 100 UNIT/1 ML 3ML VIAL SQ SCH ×4 (07:30→20:41)
[2018-12-28 07:56] LABS: PLATELET ESTIMATE MARKEDLY DECREASED
--- NOTE | 2018-12-28 08:26 | NUR ---
DR WHITFIELD INTO SEE PT AND FAMILY, DISCUSSED POC
[2018-12-28] MEDS: PANTOPRAZOLE SOD 40 MG TABEC PO SCH (08:30)
[2018-12-28] MEDS: TAMSULOSIN HCL 0.4 MG CAP PO SCH ×2 (09:00→16:56)
[2018-12-28] MEDS: ALLOPURINOL 100 MG TAB PO SCH (09:00)
[2018-12-28] MEDS: METOPROLOL TARTRATE 25 MG TAB PO SCH ×2 (09:00→20:39)
[2018-12-28] MEDS: TOLTERODINE TARTRATE 4 MG CAPCR PO SCH (09:00)
[2018-12-28] MEDS: FUROSEMIDE 40 MG TAB PO SCH (09:00)
[2018-12-28] MEDS: CYANOCOBALAMIN 1,000 MCG TAB PO SCH (09:00)
[2018-12-28] MEDS: SITAGLIPTIN 100 MG TAB PO SCH (09:00)
--- NOTE | 2018-12-28 09:11 | NUR ---
HOME MEDICATIONS CLARIFIED WITH PT, MED REC CHANGED
[2018-12-28 09:13] LABS: PLATELET CLUMPS FEW
[2018-12-28] MEDS: CEFEPIME 2 GM/NS 0.9% 100 ML 100 ML IV SCH (10:05)
--- NOTE | 2018-12-28 11:14 | NUR ---
ENCOURAGED PT TO SIT IN BSC, REFUSING AT THIS TIME, CALL LIGHT WITHIN REACH
--- NOTE | 2018-12-28 12:00 | NUR ---
WITH STANDBY ASSIST, PT OOB TO BATHROOM, LARGE BM NOTED, STANDBY ASSIST TO BSC, CALL LIGHT WITHIN REACH
--- NOTE | 2018-12-28 14:08 | NUR ---
MD LEUNG INTO SEE PT, DISCUSSED POC, PT REPORTS HAVING "HemorrhoidS", ORDERS NOTED
[2018-12-28] MEDS ORDERED: PHE/SHARK LIVER OIL/COCOA BUT 24 EA SUPP RC PRN (14:15)
--- NOTE | 2018-12-28 14:15 | NUR ---
SPOKE WITH MD RAMIREZ, ORDERS NOTED FOR PREP H OINTMENT NOT SUPP
--- NOTE | 2018-12-28 14:22 | Progress Note ---
DATE: Internal Medicine Progress Note SUBJECTIVE: The patient is feeling better today. PHYSICAL EXAMINATION: VITAL SIGNS: Blood pressure is 126/73, temperature 97.8 degrees, heart rate 70 per minute, respiratory rate 20 per minute, oxygen saturation 99%. HEART: Showed regular rhythm. Normal S1, S2 sound. LUNGS: Clear bilaterally. ABDOMEN: Soft. EXTREMITIES: Showed no evidence of cyanosis or hematoma. FINAL IMPRESSION: 1. Gram-negative sepsis. 2. Pancytopenia is most likely secondary to myelodysplastic syndrome versus acute myeloid leukemia. 3. Acute on chronic renal failure stage 3 to 4. 4. Uncontrolled diabetes mellitus type 2 with diabetic nephropathy. 5. Hypothyroidism. 6. Benign prostatic hypertrophy. PLAN OF TREATMENT: We are going to continue current medication regimen with IV antibiotic, which will be cefepime 2 g IV once a day. Continue D5 half-normal saline 75 mL an hour, continue with Tylenol 325 mg q.4 hours as needed for mild pain or fever, allopurinol 300 mg daily, vitamin B12 1000 mcg p.o. daily, finasteride 5 mg at bedtime, furosemide 40 mg daily. Continue monitoring blood sugar before meals and at bedtime. Continue levothyroxine 112 mcg p.o. daily and 25 mcg p.o. daily, metoprolol 25 mg twice a day, Januvia 25 mg daily because of diabetes. Continue Flomax 0.4 mg twice a day, Detrol LA 4 mg daily, Coumadin has been placed on hold due to the extreme thrombocytopenia chance of bleeding. I am going to discontinue the fluids because of concern for congestive heart failure. We are going to repeat another CBC and a BMP tomorrow. Dr. Licea will resume the care tomorrow. Prognosis is poor. I talked with Dr. Chapman, Hematology/Oncology. The patient might have myelodysplastic syndrome versus AML. MD TAMMIE Ceballos/AKIRA /[id number]
[2018-12-28] MEDS ORDERED: PHENYLEPH/SHARK OIL/MO/PETROL 30 GM OINT RC PRN (14:30)
--- NOTE | 2018-12-28 15:03 | NUR ---
WITH STANDBY ASSIST, PT BACK TO BED, CALL LIGHT WITHIN REACH
--- NOTE | 2018-12-28 16:54 | NUR ---
WITH STANDBY ASSIST, PT OOB TO SHOWER, STANDBY ASSIST BACK TO BED, DINNER TRAY SET UP , PT VOICES NO NEEDS AT THIS TIME, CALL LIGHT WITHIN REACH Addendum: 12/28/18 at 1759 by Rhea Reyes RN PREP H OINTMENT APPLIED TO OUTSIDE OF RECTAL AREA ONLY FOR C/O HEMORRHOID PAIN
--- NOTE | 2018-12-28 17:42 | Progress Note ---
DATE: SUBJECTIVE: Mr. Starr is doing better today. There is no new complaint. He seems to be more alert. REVIEW OF SYSTEMS: HEENT: Negative. PULMONARY: Negative. CARDIAC: Negative. : Negative. GI: Negative. SKIN: There is no rash. LABORATORY DATA: Reviewed. His chart reviewed. PHYSICAL EXAMINATION: GENERAL: He is currently alert and oriented. Does not seem to be in acute distress. VITAL SIGNS: Stable. Temperature 97.8, heart rate of 70, blood pressure 128/70, and respiration 20. HEENT: Normocephalic. Not appear icteric. NECK: Supple. No JVD. No lymphadenopathy. No thyromegaly. CHEST: Clear bilateral. HEART: S1 and S2. No S3, S4, or murmur. ABDOMEN: Soft. Bowel sounds present. No tenderness. No hepatosplenomegaly. EXTREMITIES: There is no edema. SKIN: There is no rash. His blood cultures remain gram-negative rods. His white count reviewed. MEDICATION LIST: Reviewed. He is currently on cefepime 2 g daily. He is also on Tylenol and vitamin B12. Discussed with the patient. Discussed with medical team. Discussed with Dr. Chapman yesterday at length as well as Internal Medicine. IMPRESSION: 1. Gram-negative sepsis, present on admission, clinically better. Continue with cefepime. Await sensitivity. 2. Pancytopenia, concerned about myelodysplastic syndrome, acute myeloid leukemia. Discussed with Dr. Chapman. He is recommending to observe the patient clinically due to his age. 3. Muhcw-qs-mcpffoq kidney disease. Discussed with Renal. 4. Diabetes mellitus type 2. 5. Hypothyroidism. 6. Benign prostatic hypertrophy. From Infectious Disease point of view, we will continue IV antibiotic until we get the sensitivity and the blood cultures. Repeat blood cultures are negative. His white count today is 1.48 with reassuring. Hemoglobin 9.3, which is stable. Platelet of 30,000 also is better. Sodium 139, potassium 4.0, and creatinine of 1.49. Discussed with the patient and answered all the question. MD BRYN Ho/MODNatalia /[id number]
--- NOTE | 2018-12-28 17:59 | NUR ---
PT TOLERATING DINNER, VOICES NO NEEDS AT THIS TIME, CALL LIGHT WITHIN REACH
--- NOTE | 2018-12-28 19:00 | NUR ---
Report received from Jay Roy RN. (Hemo/Onco) had meeting with pt and pt family today per report. Per MD the pt has MDS and will require (upon discharge) q2week bloodwork and possible transfusions/treatment and that no aggressive treatments will be required at this time.
[2018-12-28] MEDS: FINASTERIDE 5 MG TAB PO SCH (20:39)
[2018-12-28] MEDS: ACETAMINOPHEN 325 MG TAB PO PRN (21:45)
[2018-12-29 04:58] LABS: HEMATOCRIT 27.5 % (38.2-49.6); HEMOGLOBIN 9.2 g/dL (14.0-18.0); LYMPHOCYTES # (AUTO) 0.7 (1.0-3.2); LYMPHOCYTES % 80.4 % (18.0-39.1); MEAN CORPUSCULAR HEMOGLOBIN 32.1 pg (28-32); MEAN CORPUSCULAR HGB CONC 33.5 g/dL (31-35); MEAN CORPUSCULAR VOLUME 95.8 fL (81-99); MONOCYTES # (AUTO) 0.1 (0.2-0.8); MONOCYTES % 7.6 % (4.4-11.3); NEUTROPHILS # (AUTO) 0.1 (2.1-6.9); RED BLOOD COUNT 2.87 x10e6/uL (4.3-5.7); RED CELL DISTRIBUTION WIDTH 15.1 % (11.7-14.4)
[2018-12-29 05:10] LABS: INR 1.02; PROTHROMBIN TIME 13.9 seconds (11.9-14.5)
[2018-12-29 05:18] LABS: PLATELET COUNT 19 x10e3/uL (140-360)
[2018-12-29 05:23] LABS: ALBUMIN 2.8 g/dL (3.5-5.0); ANION GAP 11.9 mmol/L (8-16); CALCIUM 8.9 mg/dL (8.4-10.2); CREATININE, SERUM 1.44 mg/dL (0.72-1.25); POTASSIUM 3.9 mmol/L (3.5-5.1)
[2018-12-29 05:41] LABS: MAGNESIUM 1.6 MG/DL (1.3-2.1); PHOSPHORUS 2.6 MG/DL (2.3-4.7)
[2018-12-29 05:46] VITALS: BP 137/78
[2018-12-29] MEDS: LEVOTHYROXINE SODIUM 112 MCG TAB PO SCH (05:46)
[2018-12-29] MEDS: LEVOTHYROXINE SODIUM 25 MCG TABLET PO SCH (05:46)
[2018-12-29 06:22] LABS: PLATELET ESTIMATE MARKEDLY DECREASED
[2018-12-29 06:24] LABS: PLATELET MORPHOLOGY COMMENT FEW LARGE; RBC MORPHOLOGY COMMENT NORMAL
--- NOTE | 2018-12-29 07:00 | Diagnostic Imaging Report ---
EXAMINATION: CHEST SINGLE (PORTABLE) INDICATION: Pneumonia. COMPARISON: Chest radiograph 12/26/2018. FINDINGS: LINES/TUBES: Left-sided pacemaker with leads in unchanged position. LUNGS:The lungs are moderately inflated. There is perihilar fullness and indistinctness of the pulmonary vasculature. Mild patchy opacities at both lung bases. PLEURA:Possible trace bilateral pleural effusions. No evidence of pneumothorax. MEDIASTINUM:Mild cardiomegaly. Atherosclerotic calcifications of the thoracic aorta. BONES/SOFT TISSUES:No acute osseous injury. ABDOMEN:No free air under the diaphragm. IMPRESSION: Pulmonary interstitial edema and mild cardiomegaly. Patchy opacities at both lung bases, likely atelectasis, although pneumonia is possible in the appropriate clinical setting. Signed by: Dr. Stacia Meade MD on 12/29/2018 6:56 AM
[2018-12-29] MEDS: PANTOPRAZOLE SOD 40 MG TABEC PO SCH (07:30)
[2018-12-29] MEDS: INSULIN LISPRO 100 UNIT/1 ML 3ML VIAL SQ SCH ×4 (07:30→20:35)
[2018-12-29] MEDS ORDERED: VANCOMYCIN 1GM/NS 250 ML 250 ML IV ONE (07:45)
[2018-12-29 08:00] VITALS: BP 108/62
[2018-12-29 08:51] VITALS: BP 137/78
[2018-12-29] MEDS: ALLOPURINOL 100 MG TAB PO SCH (09:00)
[2018-12-29] MEDS: FUROSEMIDE 40 MG TAB PO SCH (09:00)
[2018-12-29] MEDS: CYANOCOBALAMIN 1,000 MCG TAB PO SCH (09:00)
[2018-12-29] MEDS: METOPROLOL TARTRATE 25 MG TAB PO SCH ×2 (09:00→20:35)
[2018-12-29] MEDS: SITAGLIPTIN 100 MG TAB PO SCH (09:00)
[2018-12-29] MEDS: TAMSULOSIN HCL 0.4 MG CAP PO SCH ×2 (09:39→17:00)
[2018-12-29] MEDS: TOLTERODINE TARTRATE 4 MG CAPCR PO SCH (09:39)
[2018-12-29] MEDS: CEFEPIME 2 GM/NS 0.9% 100 ML 100 ML IV SCH (10:00)
[2018-12-29 12:00] VITALS: BP 110/60
[2018-12-29 16:00] VITALS: BP 107/68
--- NOTE | 2018-12-29 18:23 | NUR ---
Report called to Liset Day and patient will be moving via wheelchair to Room 103 on Med-Surg 1.
--- NOTE | 2018-12-29 18:42 | NUR ---
Received patient, lying in bed with eyes open. Respiration even and unlabored without SOB. Call light in reach. Report given to night nurse.
[2018-12-29 20:09] VITALS: BP 131/63
[2018-12-29] MEDS: FINASTERIDE 5 MG TAB PO SCH (20:35)
[2018-12-29] MEDS: ACETAMINOPHEN 325 MG TAB PO PRN (22:19)
[2018-12-29 22:32] LABS: CREATININE,URINE RANDOM 45.41 mg/dL (63-166)
[2018-12-30] VITALS (7 sets, daily range): BP systolic 115–151; BP diastolic 59–87
[2018-12-30] MEDS: LEVOTHYROXINE SODIUM 25 MCG TABLET PO SCH (05:40)
[2018-12-30] MEDS: LEVOTHYROXINE SODIUM 112 MCG TAB PO SCH (05:40)
[2018-12-30 05:44] LABS: EOSINOPHILS % 0.9 % (0.0-6.0); HEMATOCRIT 26.1 % (38.2-49.6); HEMOGLOBIN 8.6 g/dL (14.0-18.0); LYMPHOCYTES # (AUTO) 0.8 (1.0-3.2); LYMPHOCYTES % 77.4 % (18.0-39.1); MEAN CORPUSCULAR HEMOGLOBIN 32.3 pg (28-32); MEAN CORPUSCULAR VOLUME 98.1 fL (81-99); MONOCYTES # (AUTO) 0.1 (0.2-0.8); MONOCYTES % 5.7 % (4.4-11.3); NEUTROPHILS # (AUTO) 0.2 (2.1-6.9); NEUTROPHILS % 14.1 % (38.7-80.0); RED BLOOD COUNT 2.66 x10e6/uL (4.3-5.7); RED CELL DISTRIBUTION WIDTH 14.8 % (11.7-14.4)
[2018-12-30 05:57] LABS: INR 1.05; PLATELET COUNT 20 x10e3/uL (140-360); PROTHROMBIN TIME 14.2 seconds (11.9-14.5)
[2018-12-30 06:08] LABS: ALBUMIN 2.7 g/dL (3.5-5.0); ANION GAP 10.7 mmol/L (8-16); CALCIUM 8.9 mg/dL (8.4-10.2); CREATININE, SERUM 1.37 mg/dL (0.72-1.25); POTASSIUM 3.7 mmol/L (3.5-5.1)
--- NOTE | 2018-12-30 07:19 | NUR ---
Rcvd patient in report this am. Patient is asleep in bed at this time. No s/s of distress noted
[2018-12-30] MEDS: INSULIN LISPRO 100 UNIT/1 ML 3ML VIAL SQ SCH ×2 (07:30→11:30)
[2018-12-30] MEDS ORDERED: TRAMADOL HCL 50 MG TAB PO PRN (08:00)
[2018-12-30] MEDS: TOLTERODINE TARTRATE 4 MG CAPCR PO SCH (08:55)
[2018-12-30] MEDS: TAMSULOSIN HCL 0.4 MG CAP PO SCH ×2 (08:55→16:24)
[2018-12-30] MEDS: PANTOPRAZOLE SOD 40 MG TABEC PO SCH (08:55)
[2018-12-30] MEDS: FUROSEMIDE 40 MG TAB PO SCH (08:56)
[2018-12-30] MEDS: METOPROLOL TARTRATE 25 MG TAB PO SCH (08:58)
[2018-12-30] MEDS: ALLOPURINOL 100 MG TAB PO SCH (08:58)
[2018-12-30] MEDS: CYANOCOBALAMIN 1,000 MCG TAB PO SCH (08:58)
[2018-12-30] MEDS ORDERED: CEFEPIME 2 GM/NS 0.9% 100 ML 100 ML IV SCH (09:00)
--- NOTE | 2018-12-30 09:41 | NUR ---
Left forearm 20G IV started. removed 18g that was leaking and applied pressure dressing
[2018-12-30] MEDS ORDERED: ACYCLOVIR 5 GM CREAM..G. TOP SCH (09:45)
[2018-12-30] MEDS: ACYCLOVIR 15 GM OINT TP SCH ×3 (10:00→16:24)
--- NOTE | 2018-12-30 10:21 | Discharge Summary ---
ADMIT DIAGNOSES: 1. Sepsis. 2. Pancytopenia. 3. Kpkxe-nr-htvvsxt renal failure. 4. Tfboc-kp-cdvtebt diastolic heart failure. 5. Paroxysmal atrial fibrillation. DISCHARGE DIAGNOSES: 1. Sepsis secondary to Pseudomonas aeruginosa pneumonia, resolving. 2. Pancytopenia, likely secondary to myelodysplastic syndrome. 3. Mbuel-wk-jcoluxq renal failure, secondary to acute tubular necrosis, resolving. 4. Paroxysmal atrial fibrillation. 5. Chjwl-wa-lnemowu diastolic heart failure. HOSPITAL COURSE: This is an 88-year-old white man, who was initially admitted to [facility] with diagnosis of sepsis and profound pancytopenia. It was concluded during this hospitalization the patient's pancytopenia was most likely secondary to myelodysplastic syndrome. The patient was seen by a box sealing machine feeder during this hospital stay, namely, Dr. Radha Chapman. The patient was transfused 2 units of blood during this hospitalization as well as 1 jumbo pack of platelets. Moreover, he did receive 1 dose of Neupogen during this hospital stay because of his profound neutropenia. The patient's white blood cell count did get as low as 0.82 during this hospitalization. On the day of discharge, it was 1.06. On day of discharge, hemoglobin is 8.6 g/dL. On day of discharge, the patient's platelets were 20,000. The patient's blood cultures revealed growth of Pseudomonas aeruginosa, bacterial species. It was found to be sensitive to the intravenous antibiotics he was receiving namely, cefepime. The patient had multiple chest x-rays performed during this hospitalization, which revealed patchy bibasilar opacities as well as pulmonary interstitial edema and mild cardiomegaly. Thus, the patient was diagnosed with bilateral Pseudomonas aeruginosa pneumonia. During this hospitalization, the patient was made a do not resuscitate code status. The decision was made to transfer patient to a long-term acute care facility namely, [facility] where he could receive intravenous antibiotics for 2 weeks in regard to Pseudomonas aeruginosa pneumonia. Also at the long-term acute care facility, the patient could receive daily physician visits to help manage his multiple medical comorbidities. During hospitalization, he underwent echocardiogram, which revealed preserved left ventricular ejection fraction of 55%, but it did reveal findings consistent with diastolic heart failure. CONDITION ON DISCHARGE: Stable with overall poor prognosis. DISCHARGE MEDICATIONS: 1. Cefepime 1 g intravenous every 12 hours. 2. Levothyroxine 137 mcg daily. 3. Acetaminophen 325 mg every 4 hours p.r.n. mild pain or fever. 4. Metoprolol tartrate 25 mg b.i.d. 5. Finasteride 5 mg every night. 6. Tamsulosin 0.4 mg b.i.d. 7. Detrol LA 4 mg daily. 8. Furosemide 40 mg daily. 9. Vitamin B12 1000 mcg daily. 10. Allopurinol 300 mg daily. 11. Pantoprazole 40 mg daily. 12. Humalog insulin sliding scale. 13. Tramadol 50 mg every 6 hours p.r.n. pain. FOLLOWUP INSTRUCTIONS: The patient will transfer to a long-term acute care facility, namely [facility] where he will be under the care of his attending namely myself, Dr. Leonardo Licea. MD ARABELLA Polanco/AKIRA /[id number] cc: MD Christian Boston MD Ori Hampel, MD
[2018-12-30] MEDS ORDERED: ACYCLOVIR 200 MG CAP PO SCH (14:00)
--- NOTE | 2018-12-30 15:00 | NUR ---
ORDER FOR LTAC CHOICE LETTER SIGNED FOR [facility] NOTIFIED OF CONSULT BED SECURED ROOM 318 AFTER 5PM MOT INITIATED AND GIVEN TO NURSE BUTCH ALONG WITH NUMBER TO CALL REPORT
--- NOTE | 2018-12-30 17:08 | NUR ---
Report called to [facility] and spoke with NIKOLAI Mathias. Ambulance to pick and shovel worker at 1800
--- NOTE | 2018-12-30 18:17 | NUR ---
ambulance is here to pick pt up pt is now off floor
== END 2018-12-30 18:14 | DRG 871 ==
LOC: ER 07:51 → ERHOLD 10:42 → IMCU 15:05 → MED/SURG 12-29 18:43
PROVIDERS: ADMIT Internal Medicine; ATTEND Internal Medicine
PROC: 30233R1 Transfusion of Nonautologous Platelets into Peripheral Vein, Percutaneous Approach (ICD-10-PCS; principal; 2018-12-27)
PROC: 30233N1 Transfusion of Nonautologous Red Blood Cells into Peripheral Vein, Percutaneous Approach (ICD-10-PCS; 2018-12-27)
DX: A41.9 Sepsis, unspecified organism (principal); J15.1 Pneumonia due to Pseudomonas; I50.33 Acute on chronic diastolic (congestive) heart failure; D61.818 Other pancytopenia; N17.9 Acute kidney failure, unspecified; N18.4 Chronic kidney disease, stage 4 (severe); I13.0 Hypertensive heart and chronic kidney disease with heart failure and stage 1 through stage 4 chronic kidney disease, or unspecified chronic kidney disease; C92.00 Acute myeloblastic leukemia, not having achieved remission; N39.0 Urinary tract infection, site not specified; R65.20 Severe sepsis without septic shock; E03.9 Hypothyroidism, unspecified; N40.0 Benign prostatic hyperplasia without lower urinary tract symptoms; Z87.891 Personal history of nicotine dependence; D70.3 Neutropenia due to infection; Z88.5 Allergy status to narcotic agent; Z88.0 Allergy status to penicillin; Z88.8 Allergy status to other drugs, medicaments and biological substances; K75.9 Inflammatory liver disease, unspecified; E11.22 Type 2 diabetes mellitus with diabetic chronic kidney disease; E11.21 Type 2 diabetes mellitus with diabetic nephropathy; Z79.01 Long term (current) use of anticoagulants; D46.9 Myelodysplastic syndrome, unspecified; Z95.0 Presence of cardiac pacemaker; N28.1 Cyst of kidney, acquired; I48.0 Paroxysmal atrial fibrillation
CPT/HCPCS: 36415; 71045; 74176; 80048; 80053; 81001; 82550; 82553; 82570; 82948; 83605; 83735; 83880; 84100; 84300; 84484; 84550; 85025; 85610; 86850; 86900; 86920; 87040; 87071; 87086; 87186; 87205; 87400; 93005; 93306; 96372; 97139; 99284; J0692; J1442; J1940; J2430; J3370; J7040; J7050; P9016; P9034